=== PATIENT | male | born 1985 | race Asian ===

== ENCOUNTER 2021-09-11 12:25 | Emergency (ER) | payer MEDICARE, MEDICAID, SELFPAY ==
[2021-09-11 12:37] VITALS: BP 119/83; PULSE 96; RESP 18; TEMP 36.4; O2SAT 100
--- NOTE | 2021-09-11 13:14 | ED_ITS ---
HPI - General Adult General Time Seen by Provider: 13:00 Date Seen: 09/11/21 Chief complaint: Unspecified Complaint, Adult Stated complaint: Medication withdrawal Time Seen by Provider: 09/11/21 12:26 History of Present Illness HPI narrative: This 35-year-old male residing in a retirement here with his care provider Mily is coming in as they cannot get his clozapine filled from [facility]. The patient was scheduled to have a CBC done this past week and there was not reportedly a physician order and thus it got canceled. He has a psychiatrist that manages his clozapine. His care provider had him to multiple facilities trying to get the clozapine refilled for the weekend. I have reviewed with her after talking to her pharmacy that there is special dispensation license seen for this. We do not have it here. We have contacted [facility] and their pharmacist does have the dispensation license. Patient is going to have to be seen in the ED. patient is already been seen here and I have ordered a CBC. We will fax the results to Mel the pharmacist at [facility] managing the pharmacy there today. His care provider has no concerns with him, no concerns of any illness or infections. In review of some of his counts in the chart prior the most recent 1 was 05/14/2021 with a white blood count of 5000, absolute neutrophil count 2200. Related Data Home Medications Medication Instructions Recorded Confirmed carbamide peroxide 6.5 % ear drops drp OTIC (EAR) 09/11/21 (Ear Drops (carbamide peroxide)) cetirizine 10 mg tablet mg 09/11/21 clonidine HCl 0.1 mg tablet mg 09/11/21 clozapine 100 mg tablet mg 09/11/21 clozapine 50 mg tablet mg 09/11/21 divalproex 125 mg capsule,delayed mg PO 09/11/21 release sprinkle docusate sodium 100 mg capsule mg PO 09/11/21 ezetimibe 10 mg tablet mg 09/11/21 fenofibrate 160 mg tablet mg 09/11/21 fluoxetine 20 mg capsule mg 09/11/21 glucagon 1 mg solution for mg 09/11/21 injection (Glucagon Emergency Kit) insulin glargine 100 unit/mL (3 unit SUBCUT 09/11/21 mL) subcutaneous pen (Basaglar KwikPen U-100 Insulin) ipratropium bromide 42 mcg (0.06 INTRANASAL 09/11/21 %) nasal spray lancets 28 gauge (TRUEplus Lancets) 09/11/21 09/11/21 lorazepam 1 mg tablet mg 09/11/21 magnesium hydroxide 400 mg/5 mL 09/11/21 oral suspension (Milk of Magnesia) metformin 500 mg tablet,extended mg PO 09/11/21 release 24 hr multivitamin with folic acid 400 tab PO 09/11/21 mcg tablet (Daily-Nahomi (with folic acid)) pen needle, diabetic 31 gauge x 09/11/21 09/11/21 5/16 (UltiCare Pen Needle) polyethylene glycol 3350 17 g 09/11/21 gram/dose oral powder (Gavilax) triamcinolone acetonide 0.5 % TOPICAL 09/11/21 topical ointment valproic acid (as sodium salt) 250 mg 09/11/21 mg/5 mL oral solution Allergies Allergy/AdvReac Type Severity Reaction Status Date / Time No Known Drug Allergies Allergy Verified 09/11/21 12:41 Review of Systems Narrative: No concerns today, only issue is they are out of his clozapine. [facility] Medical History (Updated 09/11/21 @ 13:35 by Cordelia Kaur MD) Autism Diabetes mellitus OCD (obsessive compulsive disorder) Seizure disorder Social History Smoking Status: Never smoker Do you use any of these nicotine containing products: None Second hand tobacco smoke exposure: No How often do you have a drink containing alcohol: never How often do you have six or more drinks on one occasion: Never AUDIT-C Alcohol total score: 0 Non-prescribed substance use: denies use Exam Const: Vital Signs, click to edit/add: Vital Signs - 24 hr 09/11/21 12:37 Temperature 97.6 F Pulse Rate [Right Pulse Oximeter] 96 Respiratory Rate 18 Blood Pressure [Ri ght Upper Arm] 119/83 Pulse Oximetry 100 Documenting provider has reviewed patient's vital signs: yes Common normals: no apparent distress Other: States he wants to go home. Eye: Common normals: PERRL and EOMs intact bilaterally Pupil: PERRL Resp: Common normals: normal respiratory effort and clear to auscultation bilaterally Auscultation: clear to auscultation bilaterally Cardio: Common normals: regular rate, regular rhythm, S1 normal heart sound, S2 normal heart sound, no gallops, no clicks and no murmurs Rate: regular rate Rhythm: regular rhythm Heart sounds: S1 normal and S2 normal Course Course Hospital Course: Have ordered a CBC, have spoken with pharmacist at [facility], had reviewed the situation with our pharmacist 1st. We cannot dispense this medicine, I cannot prescribe this medicine. We will fax the CBC both to [facility] and [facility]. He will be advised they need to go to [place], with the pharmacist expecting to get medication dispensed to them pending the CBC result. Vital Signs Vital signs: Initial Vital Signs Temperature 97.6 F 09/11/21 12:37 Temperature Source Temporal Artery Scan 09/11/21 12:37 Pulse Rate 96 09/11/21 12:37 Respiratory Rate 18 09/11/21 12:37 Blood Pressure 119/83 09/11/21 12:37 Blood Pressure Mean 95 09/11/21 12:37 Blood Pressure Position Sitting 09/11/21 12:37 Pulse Oximetry 100 09/11/21 12:37 Oxygen Delivery Method 09/11/21 12:37 Vital Signs Temperature 97.6 F 09/11/21 12:37 Pulse Rate 96 09/11/21 12:37 Respiratory Rate 18 09/11/21 12:37 Blood Pressure 119/83 09/11/21 12:37 Pulse Oximetry 100 09/11/21 12:37 Temperature 97.6 F 09/11/21 12:37 Pulse Rate 96 09/11/21 12:37 Respiratory Rate 18 09/11/21 12:37 Blood Pressure 119/83 09/11/21 12:37 Pulse Oximetry 100 09/11/21 12:37 Medical Decision Making Lab Data Labs: Lab Results 09/11/21 Range/Units 13:15 WBC 10.48 (4.50-11.00) K/uL RBC 4.66 (4.30-5.90) m/uL Hgb 11.8 L (13.5-17.5) gm/dL Hct 35.3 L (37.0-53.0) % MCV 76 L (80-100) fL MCH 25 L (26-34) pg MCHC 33 (32-36) gm/dL RDW Coeff of Mikal 13.6 (11.5-15.5) % Plt Count 264 (140-440) K/uL Neut % (Auto) 69.8 (42.0-72.0) % Lymph % (Auto) 19.1 L (20-44) % Eddy % (Auto) 9.9 (0.0-11.0) % Eos % (Auto) 0.6 (0.0-7.0) % Baso % (Auto) 0.1 (0.0-3.0) % Neut # (Auto) 7.32 H (1.7-7.0) K/uL Lymph # (Auto) 2.00 (0.90-2.90) K/uL Eddy # (Auto) 1.00 H (0.00-0.90) K/UL Eos # (Auto) 0.06 (0.00-0.50) K/uL Baso # (Auto) 0.01 (0.00-0.30) K/uL Abs Immat Gran (auto) 0.05 (0.00-0.30) K/uL Discharge Plan Discharge Clinical Impression: Encounter for medication monitoring Patient Disposition: Xfer Acute Care Hospital Discharge Location: [facility] Condition: Stable Additional Instructions: Proceed to [place] emergency room where they are expecting you. Please take copy of your cell count results with you into the ED. We will also fax a result to the pharmacy but want to make sure that there is no issue with the receiving institution having these results.
[2021-09-11 13:21] LABS: Basophils Absolute Auto 0.01 K/uL (0.00-0.30); Basophils Percent Auto 0.1 % (0.0-3.0); Eosinophils Absolute Auto 0.06 K/uL (0.00-0.50); Eosinophils Percent Auto 0.6 % (0.0-7.0); Hematocrit 35.3 % (37.0-53.0); Hemoglobin* 11.8 gm/dL (13.5-17.5); Immature Granulocytes Abs Auto 0.05 K/uL (0.00-0.30); Lymphocytes Percent Auto 19.1 % (20-44); Mean Corpuscular HGB Conc 33 gm/dL (32-36); Mean Corpuscular Hemoglobin 25 pg (26-34); Mean Corpuscular Volume 76 fL (80-100); Monocytes Percent Auto 9.9 % (0.0-11.0); Neutrophils Absolute Auto 7.32 K/uL (1.7-7.0); Neutrophils Percent Auto 69.8 % (42.0-72.0); Platelet Count* 264 K/uL (140-440); RDW Coefficient of Variation % 13.6 % (11.5-15.5); Red Blood Count 4.66 m/uL (4.30-5.90); White Blood Count* 10.48 K/uL (4.50-11.00)
[2021-09-11 13:29] LABS: Slide Review Reflex No
--- NOTE | 2021-09-11 15:08 | ED.NURSE ---
Lab results faxed both to [facility] pharmacist and [facility].
== END 2021-09-11 13:48 | disposition short-term general hospital (02) ==
PROVIDERS: Emergency Provider Family Medicine; PCP Family Medicine
DX: Z51.81 Encounter for therapeutic drug level monitoring (principal)
CPT/HCPCS: 36415; 85025; 99282; 99283

== ENCOUNTER 2023-06-30 10:01 | Emergency (ER) | payer MEDICARE, MEDICAID, SELFPAY ==
[2023-06-30] VITALS (23 sets, daily range): BP systolic 80–118; BP diastolic 54–84; PULSE 91–100; RESP 16; TEMP 36; O2SAT 94–99; BMI 24.6
[2023-06-30 11:16] LABS: Basophils Percent Auto 0.1 % (0.0-3.0); Eosinophils Percent Auto 0.8 % (0.0-7.0); Hematocrit 39.9 % (37.0-53.0); Hemoglobin* 12.7 gm/dL (13.5-17.5); Immature Granulocytes Pct Auto 0.4 %; Lymphocytes Percent Auto 9.4 % (20-44); Mean Corpuscular HGB Conc 32 gm/dL (32-36); Mean Corpuscular Hemoglobin 25 pg (26-34); Mean Corpuscular Volume 78 fL (80-100); Monocytes Percent Auto 9.6 % (0.0-11.0); Neutrophils Percent Auto 79.7 % (42.0-72.0); Platelet Count* 292 K/uL (140-440); RDW Coefficient of Variation % 14.4 % (11.5-15.5); Red Blood Count 5.09 m/uL (4.30-5.90); White Blood Count* 12.87 K/uL (4.50-11.00)
[2023-06-30 11:18] LABS: Slide Review Reflex No
[2023-06-30 11:29] LABS: Chloride* 98 mmol/L (96-114); Sodium* 136 mmol/L (135-149)
[2023-06-30 11:30] LABS: Potassium* 4.7 mmol/L (3.6-5.1)
[2023-06-30 11:32] LABS: Creatinine* 1.1 mg/dL (0.5-1.5); Estimated Glomerular Filt Rate 89 ml/min
[2023-06-30 11:46] LABS: Anion Gap 14 mEq/L (7-15); Blood Urea Nitrogen* 14 mg/dL (5-24); Calcium* 10.8 mg/dL (8.4-10.6); Carbon Dioxide* 24 mmol/L (20-32); Glucose* 137 mg/dL (60-115)
--- NOTE | 2023-06-30 12:06 | XR_ITS ---
Patient: REMINGTON Facility:?[facility] Patient ID:?[id number] Site Patient ID:?[id number]. Site :?1985 Study:?XRay-Abdomen 1v-06/30/2023 12:38:51 PM Ordering Physician:CLIFFORD Final Report: INDICATION: Abdominal pain, swallowed a quarter and janeen recently. TECHNIQUE: Abdomen and pelvis 1 view(s) COMPARISON: None. FINDINGS/IMPRESSION: Multiple round metallic densities projecting over the right lower quadrant of the abdomen. These appear to measure approximately 2.0 cm in diameter. Nonspecific, nonobstructive bowel gas pattern. Thickened gastric wall, may reflect gastritis. No evidence of pneumoperitoneum, within limitations of supine positioning. Visualized lung bases are clear. No acute osseous abnormality. Dictated by Eugene Curry MD @ 06/30/2023 12:51:59 PM Signed by:?Eugene Curry MD @06/30/2023 12:51:59 PM (Electronic Signature)
--- NOTE | 2023-06-30 12:08 | ED.GENADULT ---
HPI - General Adult General Chief complaint: Abdominal Pain Stated complaint: low BP/ cant go to the BR Time Seen by Provider: 06/30/23 11:56 History of Present Illness HPI narrative: This 37-year-old male lives in a senior care and comes in because of generalized malaise. He was noted to have lower blood pressure on arrival but without any further intervention repeat blood pressure shows 99/74. He has not had any fevers. He did swallow some coins more than a month ago and there is report that the janeen has passed through. Labs are obtained and he does have a slightly elevated white blood cell count at 12.87. Other labs are reassuring. A plain x-ray of the abdomen does show what appears to be more than 1 foreign object in the right lower quadrant. A CT scan of the pelvis without contrast is then obtained and returns with findings of 1 point in the cecum and another is smaller object in the pelvis that is not likely a coin. There is no sign of obstruction or free air in the abdomen or other abnormality. The patient seems to be doing better and has systolic blood pressure at around 120. He is up to the bathroom and is interested in taking food. Related Data Home Medications Medication Instructions Recorded Confirmed carbamide peroxide 6.5 % ear drops drp otic (ear) 09/11/21 (Ear Drops (carbamide peroxide)) cetirizine 10 mg tablet mg 09/11/21 clonidine HCl 0.1 mg tablet 0.1 mg PO HS 09/11/21 06/30/23 clozapine 100 mg tablet 150 mg PO DAILY 09/11/21 06/30/23 clozapine 50 mg tablet 50 mg PO .am 09/11/21 06/30/23 divalproex 125 mg capsule,delayed 500 mg PO .am 09/11/21 06/30/23 release sprinkle docusate sodium 100 mg capsule 100 mg PO DAILY 09/11/21 06/30/23 ezetimibe 10 mg tablet 10 mg PO DAILY 09/11/21 06/30/23 fenofibrate 160 mg tablet 160 mg PO DAILY 09/11/21 06/30/23 fluoxetine 20 mg capsule mg 09/11/21 glucagon 1 mg solution for mg 09/11/21 injection (Glucagon Emergency Kit) insulin glargine 100 unit/mL (3 28 unit subcut HS 09/11/21 06/30/23 mL) subcutaneous pen (Basaglar KwikPen U-100 Insulin) ipratropium bromide 42 mcg (0.06 intranasal 09/11/21 %) nasal spray lancets 28 gauge (TRUEplus Lancets) 09/11/21 09/11/21 lorazepam 1 mg tablet 1 mg PO PRN 09/11/21 magnesium hydroxide 400 mg/5 mL 09/11/21 oral suspension (Milk of Magnesia) metformin 500 mg tablet,extended 1,500 mg PO .pm 09/11/21 06/30/23 release 24 hr multivitamin with folic acid 400 1 tab PO DAILY 09/11/21 06/30/23 mcg tablet (Daily-Nahomi (with folic acid)) pen needle, diabetic 31 gauge x 09/11/21 09/11/21 5/16 (UltiCare Pen Needle) polyethylene glycol 3350 17 17 g PO DAILY 09/11/21 06/30/23 gram/dose oral powder (Gavilax) triamcinolone acetonide 0.5 % topical 09/11/21 topical ointment valproic acid (as sodium salt) 250 375 mg PO Q12H 09/11/21 06/30/23 mg/5 mL oral solution Allergies Allergy/AdvReac Type Severity Reaction Status Date / Time No Known Drug Allergies Allergy Verified 06/30/23 10:17 Review of Systems Status of ROS: Reports: unobtainable due to mental status [facility] Medical History (Updated 06/30/23 @ 14:44 by Steve Qiu MD) OCD (obsessive compulsive disorder) ?F42.9 - Obsessive-compulsive disorder, unspecified (ICD-10) Autism ?F84.0 - Autistic disorder (ICD-10) Diabetes mellitus ?E11.9 - Type 2 diabetes mellitus without complications (ICD-10) Seizure disorder ?G40.909 - Epilepsy, unspecified, not intractable, without status epilepticus (ICD-10) Social History Smoking Status: Never smoker Do you use any of these nicotine containing products: None Second hand tobacco smoke exposure: No How often do you have a drink containing alcohol: never How often do you have six or more drinks on one occasion: Never AUDIT-C Alcohol total score: 0 Non-prescribed substance use: denies use Exam Narrative: Exam Narrative: Constitutional: Well-developed, well-nourished, no acute distress. HEENT: Normocephalic, atraumatic. Neck: Normal range of motion. Nontender. Supple. Heart: Regular. No murmurs. Normal rate. Intact distal pulses. Lungs: Clear to auscultation. No chest discomfort. No wheezes, rhonchi, or rales. Abdomen: Normal bowel sounds. Nontender. No rebound tenderness. I am able to palpate throughout his abdomen without any sign of discomfort. Genitalia: Deferred. Back: No midline tenderness. Normal range of motion. Extremities: Normal range of motion. No injury. Skin: Intact. No rash. Warm. No erythema or pallor. Nursing notes and vitals signs are reviewed. Const: Vital Signs, click to edit/add: Vital Signs - 24 hr 06/30/23 10:06 06/30/23 10:33 06/30/23 10:45 Temperature 96.8 F L Pulse Rate Pulse Rate [Pulse Oximeter] 98 Respiratory Rate 16 Blood Pressure 96/63 Blood Pressure [Ri ght Upper Arm] 80/54 L 96/63 Pulse Oximetry 97 Oxygen Delivery Me thod Room Air 06/30/23 11:01 06/30/23 11:22 06/30/23 11:31 Temperature Pulse Rate 91 93 Pulse Rate [Pulse Oximeter] Respiratory Rate Blood Pressure 94/70 99/74 Blood Pressure [Ri ght Upper Arm] Pulse Oximetry 94 96 Oxygen Delivery Me thod 06/30/23 11:32 06/30/23 11:45 06/30/23 12:00 Temperature Pulse Rate 91 91 92 Pulse Rate [Pulse Oximeter] Respiratory Rate Blood Pressure Blood Pressure [Ri ght Upper Arm] Pulse Oximetry 95 96 96 Oxygen Delivery Me thod 06/30/23 12:01 06/30/23 12:15 06/30/23 12:30 Temperature Pulse Rate 93 94 93 Pulse Rate [Pulse Oximeter] Respiratory Rate Blood Pressure 99/74 108/72 Blood Pressure [Ri ght Upper Arm] Pulse Oximetry 96 96 95 Oxygen Delivery Me thod 06/30/23 12:31 06/30/23 12:45 06/30/23 13:07 Temperature Pulse Rate 94 94 99 Pulse Rate [Pulse Oximeter] Respiratory Rate Blood Pressure Blood Pressure [Ri ght Upper Arm] Pulse Oximetry 95 96 98 Oxygen Delivery Me thod 06/30/23 13:15 06/30/23 13:30 06/30/23 13:34 Temperature Pulse Rate 93 94 94 Pulse Rate [Pulse Oximeter] Respiratory Rate Blood Pressure 109/79 Blood Pressure [Ri ght Upper Arm] Pulse Oximetry 97 99 97 Oxygen Delivery Me thod 06/30/23 13:45 Temperature Pulse Rate 93 Pulse Rate [Pulse Oximeter] Respiratory Rate Blood Pressure Blood Pressure [Ri ght Upper Arm] Pulse Oximetry 97 Oxygen Delivery Me thod Course Vital Signs Vital signs: Initial Vital Signs Temperature 96.8 F L 06/30/23 10:06 Temperature Source Temporal Artery Scan 06/30/23 10:06 Pulse Rate 98 06/30/23 10:06 Respiratory Rate 16 06/30/23 10:06 Blood Pressure 80/54 L 06/30/23 10:06 Blood Pressure Mean 62 L 06/30/23 10:06 Pulse Oximetry 97 06/30/23 10:06 Oxygen Delivery Method Room Air 06/30/23 10:06 Vital Signs Temperature 96.8 F L 06/30/23 10:06 Pulse Rate 98 06/30/23 10:06 Respiratory Rate 16 06/30/23 10:06 Blood Pressure 80/54 L 06/30/23 10:06 Pulse Oximetry 97 06/30/23 10:06 Oxygen Delivery Method Room Air 06/30/23 10:06 Temperature 96.8 F L 06/30/23 10:06 Pulse Rate 93 06/30/23 13:45 Respiratory Rate 16 06/30/23 10:06 Blood Pressure 109/79 06/30/23 13:34 Pulse Oximetry 97 06/30/23 13:45 Oxygen Delivery Method Room Air 06/30/23 10:06 Medical Decision Making Lab Data Labs: Lab Results 06/30/23 Range/Units 11:03 WBC 12.87 H (4.50-11.00) K/uL RBC 5.09 (4.30-5.90) m/uL Hgb 12.7 L (13.5-17.5) gm/dL Hct 39.9 (37.0-53.0) % MCV 78 L (80-100) fL MCH 25 L (26-34) pg MCHC 32 (32-36) gm/dL RDW Coeff of Mikal 14.4 (11.5-15.5) % Plt Count 292 (140-440) K/uL Neut % (Auto) 79.7 H (42.0-72.0) % Lymph % (Auto) 9.4 L (20-44) % [place] % (Auto) 9.6 (0.0-11.0) % Eos % (Auto) 0.8 (0.0-7.0) % Baso % (Auto) 0.1 (0.0-3.0) % Neut # (Auto) 10.30 H (1.7-7.0) K/uL Lymph # (Auto) 1.20 (0.90-2.90) K/uL [place] # (Auto) 1.20 H (0.00-0.90) K/UL Eos # (Auto) 0.10 (0.00-0.50) K/uL Baso # (Auto) 0.00 (0.00-0.30) K/uL Abs Immat Gran (auto) 0.10 (0.00-0.30) K/uL Imm/Tot Granulo (auto) 0.4 % Sodium 136 (135-149) mmol/L Potassium 4.7 (3.6-5.1) mmol/L Chloride 98 (96-114) mmol/L Carbon Dioxide 24 (20-32) mmol/L Anion Gap 14 (7-15) mEq/L BUN 14 (5-24) mg/dL Creatinine 1.1 (0.5-1.5) mg/dL Estimated Creat Clear 86.80 Estimated GFR 89 ml/min Glucose 137 H (60-115) mg/dL Calcium 10.8 H (8.4-10.6) mg/dL Imaging Data CT scan - pelvis: Radiologist's impression: 1. Diffuse fecal retention. 2. Metallic foreign body in the right lower quadrant probably within the cecum though exact localization is difficult due to streak artifact from dense metallic streak. This is likely 1 of the coins in question 3. A smaller metallic foreign body is noted lower in the cecum on the right measuring between 6 and 7 millimeters. This is too small to be a coin and is of uncertain etiology. 4. Pacemaker via the comment Discharge Plan Discharge Clinical Impression: Abdominal pain Patient Disposition: Home w/ Parent or Adult Condition: Stable Additional Instructions: Continue current plans. Recommend using a laxative to help push foreign object through the bowels. Follow up with MD or return if worsening. Prescriptions: No Action clonidine HCl 0.1 mg tablet 0.1 mg PO HS cetirizine 10 mg tablet clozapine 100 mg tablet 150 mg PO DAILY Patient Comments: takes at 1500 triamcinolone acetonide 0.5 % ointment TOPICAL magnesium hydroxide [Milk of Magnesia] 400 mg/5 mL suspension valproic acid (as sodium salt) 250 mg/5 mL solution 375 mg PO Q12H Patient Comments: HS dose 7.5 ml 2050/5ml afternoon dose 1500 mg 30 ml Ear Drops (carbamide peroxide) 6.5 % drops OTIC (EAR) docusate sodium 100 mg capsule 100 mg PO DAILY lorazepam 1 mg tablet 1 mg PO PRN Glucagon Emergency Kit (human) 1 mg recon soln polyethylene glycol 3350 [Gavilax] 17 gram/dose powder 17 g PO DAILY ipratropium bromide 42 mcg (0.06 %) spray,non-aerosol INTRANASAL fluoxetine 20 mg capsule metformin 500 mg tablet extended release 24 hr 1,500 mg PO .pm divalproex 125 mg capsule, delayed rel sprinkle 500 mg PO .am (DME) pen needle, diabetic [UltiCare Pen Needle] 31 gauge x 5/16 needle MISCELLANEOUS Patient Comments: FOR ADMINISTERING INSULIN AT HOME ezetimibe 10 mg tablet 10 mg PO DAILY Patient Comments: 1/2 tab (5 mg ) fenofibrate 160 mg tablet 160 mg PO DAILY clozapine 50 mg tablet 50 mg PO .am insulin glargine [Basaglar KwikPen U-100 Insulin] 100 unit/mL (3 mL) insulin pen 28 unit SUBCUT HS Patient Comments: INJECT 17 UNITS SUBCUTANEOUSLY AT BEDTIME multivitamin with folic acid [Daily-Nahomi (with folic acid)] 400 mcg tablet 1 tab PO DAILY (DME) lancets [TRUEplus Lancets] 28 gauge misc MISCELLANEOUS Patient Comments: TEST THREE TIMES A DAY Follow Up/Referrals: Israel Monteiro MD [Primary Care Provider] - Stand Alone Forms: [facility] [employer] [facility] Info Instructions
--- NOTE | 2023-06-30 12:36 | CT_ITS ---
Patient: REMINGTON Facility:?[facility] Patient ID:?[id number] Site Patient ID:?[id number]. Site :?1985 Study:?CT-Pelvis WITHOUT-06/30/2023 1:15:16 PM Ordering Physician:?DR. BARNETT Final Report: Indication: Swallowed a quarter and a janeen on May 20. No bowel movement. Checking for location of coins. Technique: CT examination of the pelvis was performed. Imaging was acquired from below the umbilicus to the symphysis pubis Please note that all CT scans at this facility use dose modulation, iterative reconstruction, and/or weight-based dosing when appropriate to reduce radiation dose to as low as reasonably achievable. Comparison: There are no prior studies for comparison Findings: There is diffuse fecal retention throughout the colon as visualized. This includes the rectosigmoid and portions of the visualized transverse colon, cecum and ascending colon. A rounded metallic foreign body is seen in the right lower quadrant. Exact localization is difficult by CT because of streak artifact but it is likely within the region of the cecum. This measures 18 millimeters in diameter and likely represents a coin. A smaller radiopaque structure is noted deeper in the right lower quadrant probably also in the cecum. This measures about 6.7 millimeters in diameter which is smaller than a janeen. The exact source of this metallic foreign body is uncertain. Because of streak artifact, plain film of the lower abdomen and pelvis may be more accurate in this regard Impression: 1. Diffuse fecal retention. 2. Metallic foreign body in the right lower quadrant probably within the cecum though exact localization is difficult due to streak artifact from dense metallic streak. This is likely 1 of the coins in question 3. A smaller metallic foreign body is noted lower in the cecum on the right measuring between 6 and 7 millimeters. This is too small to be a coin and is of uncertain etiology. 4. Pacemaker via the comment Please note that all CT scans at this facility use dose modulation, iterative reconstruction, and/or weight-based dosing when appropriate to reduce radiation dose to as low as reasonably achievable. Dictated by Josh Hilliard MD @ 06/30/2023 1:35:43 PM Signed by:?Josh Hilliard MD @06/30/2023 1:35:43 PM (Electronic Signature)
== END 2023-06-30 14:53 | disposition home or self-care (01) ==
PROVIDERS: Emergency Provider Emergency Medicine Emergency Medical Services; PCP Family Medicine
DX: R10.9 Unspecified abdominal pain (principal)
CPT/HCPCS: 36415; 72192; 74018; 80048; 85025; 99284; 99285

== ENCOUNTER 2023-07-01 09:13 | Emergency (ER) | payer MEDICARE, MEDICAID, SELFPAY ==
[2023-07-01 09:23] VITALS: BP 110/68; PULSE 92; RESP 18; TEMP 36.4; O2SAT 96
--- NOTE | 2023-07-01 09:57 | ED_ITS ---
HPI - Nausea/Vomiting/Diarrhea General Date Seen: 07/01/23 Chief complaint: Nausea/Vomiting Stated complaint: Vomiting-was here yesterday Time Seen by Provider: 07/01/23 09:25 Source: other (shelter caregiver) Mode of arrival: ambulatory History of Present Illness HPI Narrative: Patient is a 37-year-old [facility] presenting to the emergency department for vomiting. Patient was here yesterday and was seen in imaging done for concerned that he swallowed a magnet after he swallowed a few coins several days. He has also been having issues with constipation. Yesterday's CT and lab work was done showing to objects 1 likely a coin in his intestinal tract. The also showed a large amount of constipation. shelter was given instructions to use [id number] stool softeners. They state they are only able to give stool softeners every 3 days as standing orders and need more specific instructions if it is recommended to do more. He also had 2 episodes of vomiting but is currently asking for food. Related Data Home Medications Medication Instructions Recorded Confirmed carbamide peroxide 6.5 % ear drops drp otic (ear) 09/11/21 (Ear Drops (carbamide peroxide)) cetirizine 10 mg tablet mg 09/11/21 clonidine HCl 0.1 mg tablet 0.1 mg PO HS 09/11/21 06/30/23 clozapine 100 mg tablet 150 mg PO DAILY 09/11/21 06/30/23 clozapine 50 mg tablet 50 mg PO .am 09/11/21 06/30/23 divalproex 125 mg capsule,delayed 500 mg PO .am 09/11/21 06/30/23 release sprinkle docusate sodium 100 mg capsule 100 mg PO DAILY 09/11/21 06/30/23 ezetimibe 10 mg tablet 10 mg PO DAILY 09/11/21 06/30/23 fenofibrate 160 mg tablet 160 mg PO DAILY 09/11/21 06/30/23 fluoxetine 20 mg capsule mg 09/11/21 glucagon 1 mg solution for mg 09/11/21 injection (Glucagon Emergency Kit) insulin glargine 100 unit/mL (3 28 unit subcut HS 09/11/21 06/30/23 mL) subcutaneous pen (Basaglar KwikPen U-100 Insulin) ipratropium bromide 42 mcg (0.06 intranasal 09/11/21 %) nasal spray lancets 28 gauge (TRUEplus Lancets) 09/11/21 09/11/21 lorazepam 1 mg tablet 1 mg PO PRN 09/11/21 magnesium hydroxide 400 mg/5 mL 09/11/21 oral suspension (Milk of Magnesia) metformin 500 mg tablet,extended 1,500 mg PO .pm 09/11/21 06/30/23 release 24 hr multivitamin with folic acid 400 1 tab PO DAILY 09/11/21 06/30/23 mcg tablet (Daily-Nahomi (with folic acid)) pen needle, diabetic 31 gauge x 09/11/21 09/11/21 5/16 (UltiCare Pen Needle) polyethylene glycol 3350 17 17 g PO DAILY 09/11/21 06/30/23 gram/dose oral powder (Gavilax) triamcinolone acetonide 0.5 % topical 09/11/21 topical ointment valproic acid (as sodium salt) 250 375 mg PO Q12H 09/11/21 06/30/23 mg/5 mL oral solution Previous Rx's Medication Instructions Recorded ondansetron 4 mg disintegrating 4 mg PO Q6H #20 tabs 07/01/23 tablet Allergies Allergy/AdvReac Type Severity Reaction Status Date / Time No Known Drug Allergies Allergy Verified 06/30/23 10:17 Review of Systems Narrative: Pertinent systems reviewed and were negative unless stated in [facility]PI [facility] Medical History OCD (obsessive compulsive disorder) ?F42.9 - Obsessive-compulsive disorder, unspecified (ICD-10) Autism ?F84.0 - Autistic disorder (ICD-10) Diabetes mellitus ?E11.9 - Type 2 diabetes mellitus without complications (ICD-10) Seizure disorder ?G40.909 - Epilepsy, unspecified, not intractable, without status epilepticus (ICD-10) Social History Smoking Status: Never smoker Do you use any of these nicotine containing products: None Second hand tobacco smoke exposure: No How often do you have a drink containing alcohol: never How often do you have six or more drinks on one occasion: Never AUDIT-C Alcohol total score: 0 Non-prescribed substance use: denies use Exam Narrative: Exam Narrative: Const: Well-nourished, Well-developed, in no distress Eyes: PERRL, no conjunctival injection, and symmetrical lids HENT: Atraumatic external nose and ears. Moist mucous membranes. Neck: Symmetric, trachea midline, No thyromegaly. GI: Nontender/Nondistended, No rebound or guarding. MSK:Extremities w/o deformity, Normal Active ROM Skin: Warm, Dry. No rashes or lesions. Neuro: Normal Muscle tone, No focal neurological deficits. Psych: Awake, Alert, Appropriate mood and affect. Const: Vital Signs, click to edit/add: Vital Signs - 24 hr 07/01/23 09:23 Temperature 97.6 F Pulse Rate [Right Pulse Oximeter] 92 Respiratory Rate 18 Blood Pressure [Ri ght Upper Arm] 110/68 Pulse Oximetry 96 Oxygen Delivery Me thod Room Air Course Vital Signs Vital signs: Initial Vital Signs Temperature 97.6 F 07/01/23 09:23 Temperature Source Temporal Artery Scan 07/01/23 09:23 Pulse Rate 92 07/01/23 09:23 Respiratory Rate 18 07/01/23 09:23 Blood Pressure 110/68 07/01/23 09:23 Blood Pressure Mean 82 07/01/23 09:23 Blood Pressure Position Sitting 07/01/23 09:23 Pulse Oximetry 96 07/01/23 09:23 Oxygen Delivery Method Room Air 07/01/23 09:23 Vital Signs Temperature 97.6 F 07/01/23 09:23 Pulse Rate 92 07/01/23 09:23 Respiratory Rate 18 07/01/23 09:23 Blood Pressure 110/68 07/01/23 09:23 Pulse Oximetry 96 07/01/23 09:23 Oxygen Delivery Method Room Air 07/01/23 09:23 Temperature 97.6 F 07/01/23 09:23 Pulse Rate 92 07/01/23 09:23 Respiratory Rate 18 07/01/23 09:23 Blood Pressure 110/68 07/01/23 09:23 Pulse Oximetry 96 07/01/23 09:23 Oxygen Delivery Method Room Air 07/01/23 09:23 MDM - Nausea/Vomiting/Diarrhea MDM Narrative Medical decision making narrative: Patient is a 37-year-old male presenting with jail caregiver for nausea and more specific instructions for constipation. I reviewed his imaging. I do not believe repeat imaging is necessary. The likely coin was seen along with a small object like could be the magnet. [facility] coins are not magnetic so I am not worried about this causing an obstruction or other abnormalities. It does show he is quite constipated though and I will give very clear instructions. Was given a bowel cleanout regiment instructions along with instructions on how to use the [id number] medication for constipation. I also will prescribe Zofran as needed for nausea. Will be discharged at this time. Discharge Plan Discharge Clinical Impression: Constipation Patient Disposition: Home w/ Parent or Adult Condition: Stable Instructions: Constipation (DC) Additional Instructions: Use this bowel cleanout regimen ?2 - Bisacodyl tablets (Dulcolax? laxative NOT Dulcolax? stool softener) each tablet contains 5 mg of bisacodyl ?1 - 8.3 ounce bottle of Polyethylene Glycol (PEG) 3350 Powder (MiraLAX, Smoo thLAX, ClearLAX or generic equivalent) 64 oz. Gatorade? (No red colored flavors) Regular Gatorade?, Gatorade G2?, Powerade?, Powerade Zero?, Pedialyte or Propel?, Liquid IV, and other electrolyte beverages are acceptable. Red flavors are not allowed; all other colors (yellow, green, orange, purple, blue) are okay. It is also okay to buy two 2.12 oz packets of powdered Gatorade that can be mixed with water to a total volume of 64 oz of liquid. ?1 - 10 oz. bottle Magnesium Citrate (No red colored flavors) It is also okay for you to use a 0.5 ounce package of powdered magnesium citrate (17 grams) mixed with 10 ounces of water. ?Tomorrow begin Clear Liquid Diet (clear liquids include things you can see through). Examples of a clear liquid diet include: water, clear broth or bouillon (gluten free options available), Gatorade, Pedialyte or Powerade, carbonated and non-carbonated soft drinks (Sprite, 7-Up, Gingerale), strained fruit juices without pulp (apple, white grape, white cranberry), Jell-O, popsicles, and up to one cup of black coffee or tea (no milk or cream) each day. The following are not allowed on a clear liquid diet: red liquids, alcoholic beverages, dairy products, protein shakes, cream broths, juice with pulp, products containing oil and chewing tobacco. For additional details on following a clear liquid diet, please see [email or web address] ?Take 2 Bisacodyl (Dulcolax) tablets ?4-6 hour later Drink Miralax ? Gatorade preparation Mix 1 bottle of Miralax with 64 oz. of Gatorade in a large pitcher. Drink 1 - 8 oz. glass of the Miralax/Gatorade solution. Continue drinking 1 - 8 oz. glass every 15 minutes thereafter until the mixture is gone Continue to use docusate, senna or dulcolax, milk of magnesia or magnesium citrate twice a day daily until he is back to normal bowel movements. Use the Zofran as needed for nausea. His CT scan yesterday showed 1 coin and one smaller object that possibly could be a magnet. [place] Citizen coins are non magnetic and this should not cause problems. Prescriptions: New ondansetron 4 mg tablet,disintegrating 4 mg PO Q6H Qty: 20 0RF No Action clonidine HCl 0.1 mg tablet 0.1 mg PO HS cetirizine 10 mg tablet clozapine 100 mg tablet 150 mg PO DAILY Patient Comments: takes at 1500 triamcinolone acetonide 0.5 % ointment TOPICAL magnesium hydroxide [Milk of Magnesia] 400 mg/5 mL suspension valproic acid (as sodium salt) 250 mg/5 mL solution 375 mg PO Q12H Patient Comments: HS dose 7.5 ml 0/5ml afternoon dose 1500 mg 30 ml Ear Drops (carbamide peroxide) 6.5 % drops OTIC (EAR) docusate sodium 100 mg capsule 100 mg PO DAILY lorazepam 1 mg tablet 1 mg PO PRN Glucagon Emergency Kit (human) 1 mg recon soln polyethylene glycol 3350 [Gavilax] 17 gram/dose powder 17 g PO DAILY ipratropium bromide 42 mcg (0.06 %) spray,non-aerosol INTRANASAL fluoxetine 20 mg capsule metformin 500 mg tablet extended release 24 hr 1,500 mg PO .pm divalproex 125 mg capsule, delayed rel sprinkle 500 mg PO .am (DME) pen needle, diabetic [UltiCare Pen Needle] 31 gauge x 5/16 needle MISCELLANEOUS Patient Comments: FOR ADMINISTERING INSULIN AT HOME ezetimibe 10 mg tablet 10 mg PO DAILY Patient Comments: 1/2 tab (5 mg ) fenofibrate 160 mg tablet 160 mg PO DAILY clozapine 50 mg tablet 50 mg PO .am insulin glargine [Basaglar KwikPen U-100 Insulin] 100 unit/mL (3 mL) insulin pen 28 unit SUBCUT HS Patient Comments: INJECT 17 UNITS SUBCUTANEOUSLY AT BEDTIME multivitamin with folic acid [Daily-Nahomi (with folic acid)] 400 mcg tablet 1 tab PO DAILY (DME) lancets [TRUEplus Lancets] 28 gauge misc MISCELLANEOUS Patient Comments: TEST THREE TIMES A DAY Follow Up/Referrals: Israel Monteiro MD [Primary Care Provider] - Stand Alone [facility] Info Instructions
== END 2023-07-01 10:15 | disposition home or self-care (01) ==
PROVIDERS: Emergency Provider Student in an Organized Health Care Education/Training Program; PCP Family Medicine
DX: K59.00 Constipation, unspecified (principal)
CPT/HCPCS: 99282; 99283

== ENCOUNTER 2024-05-16 10:22 | Emergency (ER) | payer MEDICARE, MEDICAID, SELFPAY ==
--- OUTSIDE RECORDS SUMMARY | 2024-05-16 10:25 | XMS_ITS | Clinical Summary ---
Author Organization [employer] [facility] Address [address] [place] [address] Care Team Providers Care Certified Pest Control Technician Name Role Phone Conner Sweeney MD Unavailable VoIsrael chaudhary MD Primary Care Provider + Allergies No known active allergies Medications PROZAC 20 MG CAPIndications:Obses sive-compulsive disorders take 1 capsule (20mg) by oral route once daily in the morning 0 007 Active PREVIDENT 5000 SENSITIVE 1.1 %-5 % DENTAL PASTEIndications:Typ e I (juvenile type) diabetes mellitus without mention of complication, not stated as uncontrolled use as directed 0 007 Active FISH OIL 1,000 MG CAP 0 007 Active ATTENDS PULL-ON BRIEFS MEDIUM USE DIRECTED 150 12 008 Active MULTIVITAMIN TAB take 1 tablet by oral route once daily with food 009 Active medication order composer Disposable swabs PRN 0 019 Active ezetimibe (ZETIA) 10 mg tabletIndications:Pu re hyperglyceridemia TAKE 1/2 TABLET (5MG) BY MOUTH ONCE DAILY. *1 TOTAL FILL* 90 tablet 020 Active triamcinolone-dimeth icone 0.1-5 % ktoc Apply to affected areas as needed, 0.5% ointment 0 020 Active medication order composer Listerine mouthwash to be used PRN 0 020 Active fenofibrate 160 mg tabletIndications:Pu re hyperglyceridemia Take 1 tablet by mouth once daily with a meal. 30 tablet 11 021 Active Diaper,Brief, Adult,Disposable (Disposable Brief)Indications:Ac tive autistic disorder Size MediumFor home use.Pull ups for incontinence 120 Each 11 Active triamcinolone (ARISTOCORT) 0.5 % ointment Active sodium fluoride dental 1.1 % gel Apply to teeth. Active chlorhexidine (PERIDEX) 0.12 % solution Active glucose 4 gram chewable tabletIndications:Ty pe 2 diabetes mellitus without complication, with long-term current use of insulin (HC) Chew 1 Tablet (4 g) by mouth each time if needed for Blood Gluc < 60 mg/dL. 12 Tablet Active cloNIDine HCL (CATAPRES) 0.1 mg tablet Take 1/2 tablet by mouth bid daily, in the morning and afternoon 0 Active durable medical equipment (DME)Indications:Typ e 2 diabetes mellitus without complication, with long-term current use of insulin (HC),Hammer toes of both feet Diabetic shoes. Use for diabetes with hammer toes 2 Each 022 Active cloZAPine (CLOZARIL) 100 mg tabletIndications:Me dication refill,Simple schizophrenia, subchronic condition (HC) Take 1 tablet by mouth at 3-4 pm and 2 tablets by mouth in the evening. 3 tablets daily. Take with 50 mg dose. 9 Tablet Active cloZAPine (CLOZARIL) 50 mg tabletIndications:Di sturbance of conduct Take 1 tablet by mouth, 1 in the morning, 1 tablet at 3-4 pm and 1 tablet in the evening. 3 tablets daily. (takes with 100 mg tablets) 9 Tablet Active medication order composerIndications: Urinary incontinence, unspecified type FOR HOME USE 2 LARGE 2 MED 400 Each 3 022 Active metFORMIN (GLUCOPHAGE XR) 500 mg Extended-Release tabletIndications:Ty pe 2 diabetes mellitus without complication, with long-term current use of insulin (HC) Take 3 Tablets (1,500 mg) by mouth once daily with evening meal. 93 Tablet 3 022 Active Incontinence Pad, Liner, Disp (Pant Liners, Large) padsIndications:Acti ve autistic disorder Use inside underpants and change as needed for incontinence. 144 Each 3 023 Active valproic acid (DEPAKENE) 250 mg/5 mL oral solutionIndications: Seizure disorder (HC) TAKE 30ML (1500MG) BY MOUTH EVERY AFTERNOON;TAKE 7.5ML (375MG) BY MOUTH EVERY EVENING 9450 mL 3 023 Active divalproex sprinkles (DEPAKOTE SPRINKLES) 125 mg capsuleIndications:S eizure disorder (HC) TAKE 4 CAPSULES (500MG) BY MOUTH EVERY MORNING;TAKE 7 CAPSULES (875MG) BY MOUTH EVERY AFTERNOON AT ABOUT 3PM 330 Capsule 11 023 Active disposable glovesIndications:Ty pe 2 diabetes mellitus without complication, with long-term current use of insulin (HC) For home use 2 Large 2 Med 400 Each 3 023 Active alcohol swabsIndications:Typ e 2 diabetes mellitus without complication, with long-term current use of insulin (HC) USE 5-6 TIMES DAILY WITH GLUCOSE TESTS AND INSULIN ADMINISTRATION 500 Each 023 Active blood glucose control, normal (True Metrix Level 2) solnIndications:Type 2 diabetes mellitus without complication, with long-term current use of insulin (HC) USE DIRECTED 3 Each 3 023 [address], Disposable, 31 gauge x 3/16Indications:Typ e 1 diabetes mellitus without complication (HC) For administering insulin at home. 100 Each 024 Active pen needle, diabetic (UltiCare Pen Needle) 31 gauge x 5/16Indications:Typ e 2 diabetes mellitus without complication, with long-term current use of insulin (HC) For administering insulin at home. 300 Each 3 024 Active Lancing Device miscIndications:Type 2 diabetes mellitus without complication, with long-term current use of insulin (HC) As directed. 300 Each 024 Active TRUEplus Lancets 28 gauge miscIndications:Type 2 diabetes mellitus without complication, with long-term current use of insulin (HC) As directed three times daily. 300 Each 024 Active blood-glucose meterIndications:Typ e 2 diabetes mellitus without complication, with long-term current use of insulin (HC) Dispense meter, test strips, lancets covered by pt ins. E10.65 IDDM type I, uncontrolled - Test 3 times/day. 1 Each 024 Active blood sugar diagnostic (True Metrix Glucose Test Strip) stripIndications:Typ e 2 diabetes mellitus without complication, with long-term current use of insulin (HC) As directed three times daily. Dispense item covered by pt ins. E11.9 NIDDM type II - Test 3 times/day, Reason: diabetes 300 Each 3 024 Active polyethylene glycoL (Gavilax) 17 gram/scoop powderIndications:Ch ronic constipation MIX 17GM (MEASURE WITH MARKINGS INSIDE CAP) IN LIQUID AND DRINK BY MOUTH TWICE DAILY 1700 g 3 024 Active glucagon (Glucagon Emergency Kit, human,) 1 mg injectionIndications :Type 2 diabetes mellitus without complication, with long-term current use of insulin (HC) INJECT 1MG DIRECTED ONE TIME NEEDED FOR UP TO 1 DOSE. 2 Each 024 Active methylcellulose, with sugar, (Fiber Therapy, m-cell/sugar,) 2 gram/19 gram powdIndications:Cons tipation, acute MIX 1 TABLESPOON IN 8OZ WATER THEN TAKE BY MOUTH TWICE DAILY 1362 g 2 024 Active insulin glargine, U-100, (Basaglar KwikPen U-100 Insulin) 100 unit/mL (3 mL) penIndications:Type 2 diabetes mellitus without complication, with long-term current use of insulin (HC) Inject 28 units subcutaneous before bedtime. 30 mL 024 Active bisacodyL (DULCOLAX) 5 mg delayed release tabletIndications:Ch ronic constipation Give on evening of 2nd day without bowel movement. Use instead of MOM. 30 Tablet 11 025 Active LORazepam 1 mg tabletIndications:An xiety Take one tablet by mouth 1 hour BEFORE DENTAL APPOINTMENT Dental Procedure Anxiety 1 Tablet 4 025 Active LORazepam 1 mg tabletIndications:An xiety TAKE 1 TABLET BY MOUTH 30 MINUTES BEFORE DENTAL APPOINTMENT *6 TOTAL FILLS* *ORDER WHEN LOW* (DX: ANXIETY) 1 Tablet 5 025 2024 Disconti nued(Reo rder (E-cance l not sent)) Active Problems Problem Noted Date Diagnosed Date Type 2 diabetes mellitus wit h other specified complication, with long-term current use of insulin 05/25/2022 Simple schizophrenia, subchronic condition 11/06 Hearing loss 10/30/2017 Urinary incontinence 12/08/2016 Type 2 diabetes mellitus wit hout complication, with long-term current use of insulin 10/29/2015 Controlled type 2 diabetes mellitus without comp lication 10/22/2015 Seizure disorder 01/01/2013 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 convulsive w/o intractability Other and unspecified hyperlipidemia 04/27/2007 Autistic disorder 04/27/2006 Attention deficit disorder with hyperactivity Obsessive-compulsive disorders 04/27/2006 Unspecified disturbance of conduct 04/27/2006 Unspecified intellectual disabilities 04/27/2006 Resolved Problems Problem Noted Date Diagnosed Date Resolved Date Type 1 diabetes mellitus without complication 09/01/19 16 10/22/2015 Unspecified intellectual disabilities 04/27/2006 08/26/2021 Type I (juvenile type) diabe jeramy mellitus without mention of complication, not stated as uncontrolled 04/27/2006 08/20/2012 Encounters Date Type Department Care Team Description 05/09/2024 Telephone [facility] [address] [place] [address] Israel Monteiro MD Medication Management (medication management ) 04/30/2024 Telephone [facility] [address] [place] [address] Israel Monteiro MD Form 04/30/2024 Telephone [facility] [address] [place] [address] Israel Monteiro MD Questions (Orders and Materials ) 04/30/2024 Telephone [facility] [address] [place] [address] Israel Monteiro MD Form (Standing order for diabetic supplies and chart notes) 04/23/2024 Telephone [facility] [address] [place] [address] Israel Monteiro MD 04/16/2024 Telephone [facility] [address] [place] [address] Israel Monteiro MD Medication Management 04/12/2024 Travel 04/11/[address] [address] Israel Monteiro MD Refill Request (Lorazepam) 04/09/2024 10:50 AM CALL CENTER NURSE Office Visit [address] [address] Israel Monteiro MD Diabetes 04/09/2024 Travel 03/22/[address] [address] Israel Monteiro MD Lab 03/14/[address] [address] Israel Monteiro MD Form (Medication) 02/23/[address] [address] Israel Monteiro MD Refill Request (Basaglar Kwikpen) 02/22/[address] [address] Israel Monteiro MD Form 02/20/[address] [address] Israel Monteiro MD Form from Last 3 Months Immunizations Immunization Administration Dates Next Due AMB Influenza, IIV3 (Age >=3 years)(Flu Clinic Only) 11/19/2012,12/20/2011,01/29/2010,2008,01/02/2008 AMB Influenza, IIV4 PF (=>6 mos Flulaval,Fluzone Fluarix)(Flu Clinic Only) 12/16/2019,2013 COVID-19 VACCINE SPIKEVAX (M ODERNA 50MCG/0.5ML) 12YO+ PFS 12/29/2022 COVID-19 vaccine (Moderna 100mcg/0.5mL) PF, MDV 05/01/2020,04/03/2020 COVID-19 vaccine (XO1Bio NTech 30mcg/0.3mL) 12YO+ DEEPA-SUCROSE PF, MDV 10/28/2021 DTP 06/19/1992, 9,01/11/1988,1987,06/05/1987 HIB PRP-OMP (PedvaxHIB) 12/09/1991 Hepatitis B (Adult) 04/03/2017,11/03/2016,2016 INFLUENZA, IIV3 PF (AGE >= 6 MO) 11/07/2023 Influenza, IIV3 (Age >=3 years) 12/14/2010,01/19 Influenza, IIV4 01/06/2023,,11/26/2018,2017,11/29/2016,12/01/2015,12/02/2014 Influenza,CCIIV4 PRESERV FREE 12/29/2021 MMR 12/01/1998,02/23/1988 Oral Polio Vaccine 06/19/1992, 9,08/15/1987,1987 Pneumococcal Poly,23-Valent (Pneumovax) 03/08/2017 Pneumococcal conj 13-Valent (Prevnar 13) 11/04/2020 Td (Age >=7 Years) 12/01/1998 Tdap 11/16/2023,08/15/2012,07/29/2008 Tuberculin (PPD) 01/01/2013 Family History Medical History Relation Name Comments Unknown Other Relation Name Status Comments Brother 1 Alive Brother 2 Alive Brother 3 Alive Father Alive Mother Alive Other Sister Alive Social History Tobacco Use Types Packs/Day Years Used Date Smoking Tobacco: Never Smokeless Tobacco: Never Tobacco Cessation:Counseling Given: Yes Alcohol Use Standard Drinks/Week Comments Never 0 (1 standard drink = 0.6 oz pur e alcohol) PHQ-2 Answer Date Recorded PHQ-2 Score 0 05/06/2018 Social Connections Answer Date Recorded Do you often feel lonely or isolated from those around you? 0 07/04/2023 Financial Resource Strain Answer Date R ecorded Difficulty of Paying Living Expenses 3 07/04/2023 Difficulty of Paying Living Expenses Not on file 07/04/2023 Food Insecurity Answer Date Recorded Do you worry your food will run out before you are able to buy more? 1 07/04/2023 Transportation Needs Answer Date Record ed Does lack of transportation keep you from medica l appointments? 1 07/04/2023 Does lack of transportation keep you from work, meetings or getting things that you need? 1 07/04/2023 Housing Stability Answer Date Recorded What is your housing situation today? 1 07/04/2023 Utilities Answer Date Recorded Do you have trouble paying f or utilities (for example, heat, electricity, water, phone)? 1 07/04/2023 Sex and Gender Information Value Date Recorded Sex Assigned at Not on file Legal Sex Male 5:19 AM CALL CENTER NURSE Gender Identity Not on file Sexual Orientation Not on file Occupation Industry Job Start Date Job End Date disabled Not on file Not on file Not on file Obstetrics History Last Filed Vital Signs Vital Sign Reading Time Taken Comments Blood Pressure 105/71 04/09/2024 11:08 AM CALL CENTER NURSE Pulse 85 04/09/2024 11:08 AM CALL CENTER NURSE Temperature 36.4 C (97.5 F) 12/23/2021 11:21 AM CDT Respiratory Rate 18 12/11/2021 11:1 2 AM CDT Oxygen Saturation 100% 04/09/2024 11: 08 AM CALL CENTER NURSE Inhaled Oxygen Concentration - - Weight 72.5 kg (159 lb 14.4 oz) 025 11:08 AM CALL CENTER NURSE Height 168.7 cm (5' 6.4) 04/09/2024 11 :08 AM CALL CENTER NURSE Body Mass Index 25.5 04/09/2024 11:08 AM CALL CENTER NURSE Plan of Treatment Health Maintenance Due Date Last Done Comments HIV for age 15-65 2001 COVID-19 vaccine series ( season) 2023 12/29/2022, 10/28/2021, 05/01/2020, Additional history exists BMI (ht and wt on same day) for age 18+ 04/09/2025 04/09/2024, 11/07/2023, 08/22/2023, Additional history exists Lipids for age 35-44 04/09/2029 04/09/2024, 08/22/2023, 12/02/2022, Additional history exists Tetanus booster 11/15/2033 11/16/2023, 08/04, 07/29/2008, Additional history exists Pneumococcal series for age 6-49 (3 of 3 - PCV20 or PCV21) 2036 11/04/2020, 03/08/2017 Hepatitis B series for Diabetes Completed 04/03/2017, 11/03/2016, 10/04/2016 Hepatitis C screening for ag e 18-79 Completed 10/28/2021 Influenza Vaccine Completed 11/07/2023, , 12/29/2021, Additional history exists Tdap Completed 11/16/2023, 08/04, 07/29/2008 Procedures Procedure Name Priority Date/Time Associated Diagnosis Comments URINE ALBUMIN TO CREATININE RATIO, RANDOM Routine 04/09/2024 11:01 AM CALL CENTER NURSE Type 2 diabetes mellitus without complication, with long-term current use of insulin (HC) BASIC METABOLIC PANEL Routine 04/09/2024 10:50 AM CALL CENTER NURSE Type 2 diabetes mellitus without complication, with long-term current use of insulin (HC) LIPID PANEL W REFLEX MEASURED LDL Routine 04/09/2024 10:50 AM CALL CENTER NURSE Hyperlipidemia, unspecified hyperlipidemia type HEMOGLOBIN A1C MONITORING (POCT) Routine 04/09/2024 10:48 AM CALL CENTER NURSE Type 2 diabetes mellitus without complication, with long-term current use of insulin (HC) ANTI HCV Routine 10/28/2021 10:12 AM CDT Need for hepatitis C screening test from Last 3 Months or Most Recently Relevant to Health Maintenance Results * (ABNORMAL) URINE ALBUMIN TO CREATININE RATIO, RANDOM (04/09/2024 11:01 AM CALL CENTER NURSE) ALB RAND URINE 291.0 mg/L 04/09/2024 4:56 PM CALL CENTER NURSE [facility] CREATININE,URIN E 2.48 g/L 04/09/2024 4:56 PM CALL CENTER NURSE [facility] ALBUMIN TO CREATININE RATIO,RAND UR 117.3(H) <30.0 mg/g creat 04/09/2024 4:56 PM CALL CENTER NURSE [facility] Urine URINE SPECIMEN / Unknown Non-Blood / Unknown 04/09/2024 11:01 AM CALL CENTER NURSE 04/09/2024 11:01 AM CALL CENTER NURSE Narrative [facility] - 04/09/2024 4:56 PM CALL CENTER NURSE If Albumin to Creatinine Ratio is elevated, consider the following: Elevations seen with incipient nephropathy associated with diabetes mellitus or hypertension. Stress, exercise,hematuria, and urinary tract infection may also produce elevated results. If clinically indicated, confirm with 24 Hour Albumin to Creatinine Ratio. us Israel Monteiro MD URINE Final Re sult [facility] [address] [place] [address], * (ABNORMAL) LIPID PANEL W REFLEX MEASURED LDL (04/09/2024 10:50 AM CALL CENTER NURSE) CHOLESTEROL, TOTAL 137 <200 mg/dL [facility] HDL CHOLESTEROL 38(L) > OR = 40 mg/dL [facility] TRIGLYCERIDES 186(H) <150 mg/dL [facility] LDL-CHOLESTEROL 74 mg/dL (calc) [facility] Comment: Reference range: <100 Desirable range <100 mg/dL for primary prevention; <70 mg/dL for patients with CHD or diabetic patients with > or = 2 CHD risk factors. LDL-C is now calculated using the Abram-Gallito calculation, which is a validated novel method providing better accuracy than the Friedewald equation in the estimation of LDL-C. Abram SARMIENTO et al. ANTONELLA. 2013;310(19): 6001-7144 (http://education.AA Party.Yu Rong/faq/VMX580) CHOL/HDLC RATIO 3.6 <5.0 (calc) [facility] NON HDL CHOLESTEROL 99 <130 mg/dL (calc) [facility] Comment: For patients with diabetes plus 1 major ASCVD risk factor, treating to a non-HDL-C goal of <100 mg/dL (LDL-C of <70 mg/dL) is considered a therapeutic option. Blood BLOOD SPECIMEN / Unknown 04/09/2024 10:50 AM CALL CENTER NURSE 04/09/2024 10:50 AM CALL CENTER NURSE Israel Monteiro MD CHEMISTRY Final Re sult [employer] [facility] [address] [place] [address], [facility] [address] [place] [address] * (ABNORMAL) BASIC METABOLIC PANEL (04/09/2024 10:50 AM CALL CENTER NURSE) GLUCOSE 131(H) 65 - 99 mg/dL [facility] Comment: Fasting reference interval For someone without known diabetes, a glucose value >125 mg/dL indicates that they may have diabetes and this should be confirmed with a follow-up test. UREA NITROGEN (BUN) 15 7 - 25 mg/dL [facility] CREATININE 0.81 0.60 - 1.26 mg/dL [facility] EGFR 116 > OR = 60 mL/min/1. 73m2 [facility] BUN/CREATININE RATIO SEE NOTE: 6 - 22 (calc) [facility] Comment: Not Reported: BUN and Creatinine are within reference range. SODIUM 131(L) 135 - 146 mmol/L [facility] POTASSIUM 4.7 3.5 - 5.3 mmol/L [facility] CHLORIDE 97(L) 98 - 110 mmol/L [facility] CARBON DIOXIDE 22 20 - 32 mmol/L [facility] ELECTROLYTE BALANCE 12 7 - 17 mmol/L (calc) [facility] CALCIUM 10.6(H) 8.6 - 10.3 mg/dL [facility] Blood BLOOD SPECIMEN / Unknown 04/09/2024 10:50 AM CALL CENTER NURSE 04/09/2024 10:50 AM CALL CENTER NURSE Israel Monteiro MD CHEMISTRY Final Re sult Performing Organization Address City/[facility]/ZIP Co de Phone Number [employer] [facility] [address] [place] [address], [place] [phone] [facility] [address] [place] [address] * HEMOGLOBIN A1C MONITORING (POCT) (04/09/2024 10:48 AM CALL CENTER NURSE) [facility] POC HEMOGLOBIN A1C 5.8 <6.0 % OF TOTAL HGB [facility] Comment: Any point of care results exhibiting inconsistency with the patient's clinical status should be repeated using a different testing method. Blood BLOOD SPECIMEN / Unknown 04/09/2024 10:48 AM CALL CENTER NURSE 04/09/2024 10:48 AM CALL CENTER NURSE us Israel Monteiro MD CHEMISTRY Final Re sult Performing Organization Address [facility] Co de Phone Number [facility] [address] [place] [address], [facility] [address] [place] [address] * ANTI HCV (10/28/2021 10:12 AM CDT) [facility] HEPATITIS C ANTIBODY Non-React jacoby Non-React jacoby 10/28/2021 9:03 PM CDT [facility] Comment:Antibodies to HCV no t detected; does not exclude the possibility of exposure to HCV. Blood BLOOD SPECIMEN / Unknown Venipuncture / Unknown 10/28/2021 10:12 AM CDT 10/28/2021 10:15 AM CDT us Israel Monteiro MD SEND OUTS Final Re sult Performing Organization Address City/[facility]/ZIP Co de Phone Number [facility] [address] [place] [address], [place] from Last 3 Months or Most Recently Relevant to Health Maintenance Insurance MEDICAID MEDICARE PB ONLY MEDICARE PART B HB ONLY MEDICARE PART A HB ONLY MEDICARE PART A HB ONLY MEDICARE PART B HB ONLY MEDICAID Advance Directives * Full Code (Latest Code Status on File) Date Activated Date Inactivated Comments 09/30/2013 1:41 PM 09/30/2013 4:09 PM Care Teams Certified Pest Control Technician Relationship Specialty Start Date End Date Votel, Israel Curiel MD [address] [place] [address] PCP - General Family Practice 10/07/15 Conner Sweeney MD [address] , [address] [place] [address] Psychology 08/15/11
[2024-05-16 10:26] VITALS: BP 86/54; PULSE 78; RESP 18; TEMP 35.9; O2SAT 97; BMI 24.6
[2024-05-16 11:03] LABS: Glucose, Point-of-Care* 122 mg/dl (60-115)
[2024-05-16 11:04] VITALS: BP 96/62; PULSE 80; RESP 14; O2SAT 97
[2024-05-16 11:13] VITALS: BP 94/58; BP 96/62; BP 98/69; PULSE 80; PULSE 83
--- NOTE | 2024-05-16 11:24 | CRLHL7_ITS ---
For Patients: As a result of the Century Cures Act, medical imaging exams and procedure reports are released immediately into your electronic medical record. You may view this report before your referring provider. If you have questions, please contact your health care provider. INDICATION: Weakness, low blood pressure TECHNIQUE: Chest 2 views. COMPARISON: None. FINDINGS: Cardiovascular and mediastinum: Heart size is normal. Unremarkable mediastinum. Lungs and pleural spaces: Linear opacity in the left lower lobe may reflect atelectasis. No sign of infiltrate or mass. No sign of pleural effusion. No pneumothorax. Bones and soft tissues: Top-normal dilated loop of bowel in the left upper quadrant measuring up to 6.2 cm IMPRESSION: No acute cardiothoracic abnormality. Top-normal dilated loop of bowel in the left upper quadrant measuring up to 6.2 cm. Findings are indeterminate for ileus versus obstruction. Dictated by Maryjane Painter MD @ 05/16/2024 11:53:44 AM (Electronically Signed)
--- NOTE | 2024-05-16 11:49 | ED_ITS ---
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 Information was given via networker that is with him today. She states he went to work today but they sent home home from work because he seemed to be spacing out a lot. When he arrived back to the [facility]iary she checked his vitals and they were all normal other than he was hypotensive with the systolics in the 70s. She also states he seemed less active than normal. Due to this he was brought to the emergency department. In triage blood pressure was 86/54. When she was brought back to his room blood pressures have improved. The worker states she is not too concerned about his activity level is just mostly concerned about his blood pressure. He has been having a cough for the past month which they thought was related to allergies. They have not noticed any other concerns. He has not done them if he has any pain. Of note he was started on propanolol last month for hypertension. His blood pressures are usually in the 110s to 140s. Related Data Home Medications ?Medication ?Instructions ?Recorded ?Confirmed carbamide peroxide 6.5 % ear drops drp otic (ear) 09/11/21 05/09/24 (Ear Drops (carbamide peroxide)) cetirizine 10 mg tablet mg 09/11/21 05/09/24 clonidine HCl 0.1 mg tablet 0.1 mg PO HS 09/11/21 05/09/24 clozapine 100 mg tablet 150 mg PO DAILY 09/11/21 05/09/24 clozapine 50 mg tablet 50 mg PO .am 09/11/21 05/09/24 divalproex 125 mg capsule,delayed 500 mg PO .am 09/11/21 05/16/24 release sprinkle docusate sodium 100 mg capsule 100 mg PO DAILY 09/11/21 05/16/24 ezetimibe 10 mg tablet 10 mg PO DAILY 09/11/21 05/16/24 fenofibrate 160 mg tablet 160 mg PO DAILY 09/11/21 05/16/24 fluoxetine 20 mg capsule 20 mg DAILY 09/11/21 05/09/24 glucagon 1 mg solution for mg 09/11/21 05/09/24 injection (Glucagon Emergency Kit) insulin glargine 100 unit/mL (3 28 unit subcut HS 09/11/21 05/16/24 mL) subcutaneous pen (Basaglar KwikPen U-100 Insulin) ipratropium bromide 42 mcg (0.06 intranasal 09/11/21 05/09/24 %) nasal spray lancets 28 gauge (TRUEplus Lancets) 09/11/21 05/09/24 lorazepam 1 mg tablet 1 mg PO PRN 09/11/21 05/09/24 metformin 500 mg tablet,extended 1,500 mg PO .pm 09/11/21 05/16/24 release 24 hr multivitamin with folic acid 400 1 tab PO DAILY 09/11/21 05/16/24 mcg tablet (Daily-Nahomi (with folic acid)) pen needle, diabetic 31 gauge x 09/11/21 05/09/24 5/16 (UltiCare Pen Needle) polyethylene glycol 3350 17 17 g PO DAILY 09/11/21 05/16/24 gram/dose oral powder (Gavilax) triamcinolone acetonide 0.5 % topical 09/11/21 05/09/24 topical ointment valproic acid (as sodium salt) 250 375 mg PO Q12H 09/11/21 05/16/24 mg/5 mL oral solution omega 3-zqo-drw-fish oil 1,000 mg 1 cap PO QDAY 05/09/24 05/16/24 (120 mg-180 mg) capsule (Fish Oil) propranolol 10 mg tablet 10 mg PO BID 05/09/24 05/16/24 Basaglar KwikPen U-100 Insulin 05/16/24 clozapine 150 mg disintegrating 150 mg PO DAILY 05/16/24 05/16/24 tablet clozapine 200 mg tablet 250 mg PO DAILY 05/16/24 05/16/24 clozapine 50 mg tablet 50 mg PO DAILY 05/16/24 05/16/24 Previous Rx's ?Medication ?Instructions ?Recorded ondansetron 4 mg disintegrating 4 mg PO Q6H #20 tabs 07/01/23 tablet bisacodyl 5 mg tablet,delayed 5 mg PO ONCE 0 days #2 tabs 05/16/24 release (Gentle Laxative (bisacodyl)) magnesium citrate 296 ml PO ONCE #296 mL 05/16/24 polyethylene glycol 3350 17 See Rx Instructions .Route 05/16/24 gram/dose oral powder .COMPLEX #238 grams simethicone 125 mg capsule 250 mg (2 x 125 mg) PO ONCE #2 caps 05/16/24 Allergies Allergy/AdvReac Type Severity Reaction Status Date / Time No Known Drug Allergies Allergy Verified 05/09/24 10:36 Review of Systems Status of ROS: Reports: unobtainable due to medical condition [facility] Medical History OCD (obsessive compulsive disorder) ?F42.9 - Obsessive-compulsive disorder, unspecified (ICD-10) Autism ?F84.0 - Autistic disorder (ICD-10) Diabetes mellitus ?E11.9 - Type 2 diabetes mellitus without complications (ICD-10) Seizure disorder ?G40.909 - Epilepsy, unspecified, not intractable, without status epilepticus (ICD-10) Social History Smoking Status: Never smoker Do you use any of these nicotine containing products: None Second hand tobacco smoke exposure: No How often do you have a drink containing alcohol: never How often do you have six or more drinks on one occasion: Never AUDIT-C Alcohol total score: 0 Non-prescribed substance use: denies use Exam Narrative: Exam Narrative: Const: Well-nourished, Well-developed, in no distress Eyes: PERRL, no conjunctival injection, and symmetrical lids HENT: Atraumatic external nose and ears. Moist mucous membranes. Neck: Symmetric, trachea midline, No thyromegaly. CVS: RRR, No murmurs or gallops. Peripheral pulses 2+ and equal in all extremities RESP: Unlabored respiratory effort. Clear to auscultation bilaterally. GI: Nontender/Nondistended, No rebound or guarding. MSK:Extremities w/o deformity, Normal Active ROM Skin: Warm, Dry. No rashes or lesions. Neuro: Normal Muscle tone, No focal neurological deficits. Psych: Awake, Alert, Appropriate mood and affect. Const: Vital Signs, click to edit/add: Vital Signs - 24 hr 05/16/24 10:26 05/16/24 11:04 05/16/24 11:13 Temperature 96.7 F L Pulse Rate Pulse Rate [Pulse Oximeter] 78 80 Pulse Rate [orthos tatic lying] 80 Pulse Rate [orthos tatic sitting] 83 Pulse Rate [orthos tatic standing] 83 Respiratory Rate 18 14 Blood Pressure Blood Pressure [Ri ght Upper Arm] 86/54 L 96/62 Blood Pressure [or thostatic lying] 96/62 Blood Pressure [or thostatic sitting] 98/69 Blood Pressure [or thostatic standing ] 94/58 L Pulse Oximetry 97 97 Oxygen Delivery Me thod Room Air Room Air 05/16/24 12:00 05/16/24 12:19 Temperature Pulse Rate 80 80 Pulse Rate [Pulse Oximeter] Pulse Rate [orthos tatic lying] Pulse Rate [orthos tatic sitting] Pulse Rate [orthos tatic standing] Respiratory Rate 15 12 Blood Pressure 112/76 Blood Pressure [Ri ght Upper Arm] Blood Pressure [or thostatic lying] Blood Pressure [or thostatic sitting] Blood Pressure [or thostatic standing ] Pulse Oximetry 99 99 Oxygen Delivery Me thod Course Vital Signs Vital signs: Initial Vital Signs Temperature 96.7 F L 05/16/24 10:26 Temperature Source Temporal Artery Scan 05/16/24 10:26 Pulse Rate 78 05/16/24 10:26 Respiratory Rate 18 05/16/24 10:26 Blood Pressure 86/54 L 05/16/24 10:26 Blood Pressure Mean 64 L 05/16/24 10:26 Pulse Oximetry 97 05/16/24 10:26 Oxygen Delivery Method Room Air 05/16/24 10:26 Vital Signs Temperature 96.7 F L 05/16/24 10:26 Pulse Rate 78 05/16/24 10:26 Respiratory Rate 18 05/16/24 10:26 Blood Pressure 86/54 L 05/16/24 10:26 Pulse Oximetry 97 05/16/24 10:26 Oxygen Delivery Method Room Air 05/16/24 10:26 Temperature 96.7 F L 05/16/24 10:26 Pulse Rate 80 05/16/24 12:19 Respiratory Rate 12 05/16/24 12:19 Blood Pressure 112/76 05/16/24 12:19 Pulse Oximetry 99 05/16/24 12:19 Oxygen Delivery Method Room Air 05/16/24 11:04 Medical Decision Making MDM Narrative Medical decision making narrative: Patient is a 38-year-old male presenting for decreased activity and hypotension. Once the brought back to the room his pressures were in the 90s over 50s. Orthostatics were done with no changes. His heart range within normal limits. He is oxygenating well on room air. Respiratory status looks well. Overall he appears well but considering he is to focus the concerning any symptoms started to say what other symptoms he is having. Will do a chest x-ray to look for signs of pneumonia. Will do basic lab work to look for any other abnormalities along with a COVID/flu/RSV swab. Lab work shows no concerning abnormalities. Is white blood cell count and hemoglobin is consistent with previous time seen a ED. EKG and troponin showed no concerning findings. There is some elevation seen in V2 solely but does not meet any known pattern for bruit got a syndrome. Is not having any chest pain as far as I can tell. His blood pressure has improved significantly and his most recent blood pressure is 112/76. On my review vital signs are stable throughout time in in the emergency department. Oximetry stayed in the mid to high 90s. monitoring specialist showed no concerning arrhythmias. Chest x-ray showed no abnormalities other than the possible bowel obstruction seen. Due to this I will order a CT scan. The networker does state that he ate corners last year and was told they passed enough along that they are not of concern. The CT shows severe constipation but no signs of an impaction or other concerning abnormalities. The likely coins were seen in the cecum. No signs of a bowel obstruction. He will be discharged with bowel cleanout regimen. Lab Data Labs: Lab Results 05/16/24 05/16/24 05/16/24 Range/Units 11:03 11:20 12:01 WBC (4.50-11.00) K/uL RBC (4.30-5.90) m/uL Hgb (13.5-17.5) gm/dL Hct (37.0-53.0) % MCV (80-100) fL MCH (26-34) pg MCHC (32-36) gm/dL RDW Coeff of Mikal (11.5-15.5) % Plt Count (140-440) K/uL Neut % (Auto) (42.0-72.0) % Lymph % (Auto) (20-44) % [place] % (Auto) (0.0-11.0) % Eos % (Auto) (0.0-7.0) % Baso % (Auto) (0.0-3.0) % Neut # (Auto) (1.7-7.0) K/uL Lymph # (Auto) (0.90-2.90) K/uL [place] # (Auto) (0.00-0.90) K/UL Eos # (Auto) (0.00-0.50) K/uL Baso # (Auto) (0.00-0.30) K/uL Abs Immat Gran (auto) (0.00-0.30) K/uL Imm/Tot Granulo (auto) % Sodium (135-149) mmol/L Potassium (3.6-5.1) mmol/L Chloride (96-114) mmol/L Carbon Dioxide (20-32) mmol/L Anion Gap (7-15) mEq/L BUN (5-24) mg/dL Creatinine (0.5-1.5) mg/dL Estimated Creat Clear Estimated GFR ml/min Glucose (60-115) mg/dL Calcium (8.4-10.6) mg/dL Magnesium (1.5-2.6) mg/dL Troponin I (0.01-0.04) ng/mL SARS-CoV-2 (PCR) Negative SARS-CoV-2 (Negative) Influenza Type A (PCR) Negative PCR FLU A (Negative) Influenza Type B (PCR) Negative PCR FLU B (Negative) RSV (PCR) Negative PCR RSV (Negative) POC Glucose 122 H (60-115) mg/dl POC Creatinine 1.0 (0.6-1.3) mg/dl 05/16/24 Range/Units 12:10 WBC 13.28 H (4.50-11.00) K/uL RBC 4.69 (4.30-5.90) m/uL Hgb 11.9 L (13.5-17.5) gm/dL Hct 36.5 L (37.0-53.0) % MCV 78 L (80-100) fL MCH 25 L (26-34) pg MCHC 33 (32-36) gm/dL RDW Coeff of Mikal 14.8 (11.5-15.5) % Plt Count 268 (140-440) K/uL Neut % (Auto) 76.6 H (42.0-72.0) % Lymph % (Auto) 13.6 L (20-44) % [place] % (Auto) 7.8 (0.0-11.0) % Eos % (Auto) 0.8 (0.0-7.0) % Baso % (Auto) 0.1 (0.0-3.0) % Neut # (Auto) 10.20 H (1.7-7.0) K/uL Lymph # (Auto) 1.80 (0.90-2.90) K/uL [place] # (Auto) 1.00 H (0.00-0.90) K/UL Eos # (Auto) 0.10 (0.00-0.50) K/uL Baso # (Auto) 0.00 (0.00-0.30) K/uL Abs Immat Gran (auto) 0.10 (0.00-0.30) K/uL Imm/Tot Granulo (auto) 1.1 % Sodium 131 L (135-149) mmol/L Potassium 4.4 (3.6-5.1) mmol/L Chloride 97 (96-114) mmol/L Carbon Dioxide 23 (20-32) mmol/L Anion Gap 11 (7-15) mEq/L BUN 15 (5-24) mg/dL Creatinine 0.9 (0.5-1.5) mg/dL Estimated Creat Clear 105.07 Estimated GFR 113 ml/min Glucose 108 (60-115) mg/dL Calcium 10.0 (8.4-10.6) mg/dL Magnesium 2.1 (1.5-2.6) mg/dL Troponin I < 0.01 L (0.01-0.04) ng/mL SARS-CoV-2 (PCR) (Negative) Influenza Type A (PCR) (Negative) Influenza Type B (PCR) (Negative) RSV (PCR) (Negative) POC Glucose (60-115) mg/dl POC Creatinine (0.6-1.3) mg/dl Imaging Data CT scan abdomen pelvis: Attestation: I have reviewed the pertinent imaging results. Radiologist's impression: 1. Demonstration of radiopaque metallic objects within the cecum which may represent ingested foreign bodies. Correlate with history of clinical symptoms. 2. Markedly redundant sigmoid colon with severe stool seen throughout the colon commensurate with constipation changes. Nonspecific fluid is seen within the small bowel without definite evidence of small-bowel obstruction. Previously seen dilated bowel in the left upper quadrant likely represented focal colon. Please note that all CT scans at this facility use dose modulation, iterative reconstruction, and/or weight-based dosing when appropriate to reduce radiation dose to as low as reasonably achievable. Dictated by Al Anderson MD @ 05/16/2024 1:05:08 PM Chest x-ray: Attestation: I have reviewed the pertinent imaging results. Radiologist's impression: No acute cardiothoracic abnormality. Top-normal dilated loop of bowel in the left upper quadrant measuring up to 6.2 cm. Findings are indeterminate for ileus versus obstruction. Dictated by Maryjane Painter MD @ 05/16/2024 11:53:44 AM ECG Data Attestation: I personally reviewed and interpreted this ECG as follows: Interpretation: Normal sinus rhythm with rate 79 beats per minute, normal intervals, normal axis, no ST or T-wave abnormalities. There is some elevation seen solely and V2 but does not appear to meet morphology of Brugada syndrome Discharge Plan Discharge Clinical Impression: Constipation Qualifiers: Constipation type: unspecified constipation type Qualified Code(s): K59.00 - Constipation, unspecified Patient Disposition: Home w/ Parent or Adult Condition: Stable Instructions: Constipation (DC) Additional Instructions: Recommend close follow-up with his primary care provider for the episode of hypotension and the constipation. If he is unable to to complete the following bowel cleanout regimen and he may need to increase his stool softeners. ?2 - Bisacodyl tablets (Dulcolax? laxative NOT Dulcolax? stool softener) each tablet contains 5 mg of bisacodyl ?1 - 8.3 ounce bottle of Polyethylene Glycol (PEG) 3350 Powder (MiraLAX, Sm oothLAX, ClearLAX or generic equivalent) 64 oz. Gatorade? (No red colored flavors) Regular Gatorade?, Gatorade G2?, Powerade?, Powerade Zero?, Pedialyte or Propel?, Liquid IV, and other electrolyte beverages are acceptable. Red flavors are not allowed; all other colors (yellow, green, orange, purple, blue) are okay. It is also okay to buy two 2.12 oz packets of powdered Gatorade that can be mixed with water to a total volume of 64 oz of liquid. ? Simethicone 80 mg or 125 mg tablets, chewables, or softgels -Simethicone is available over the counter in a variety of forms and dosages. Capsules, chewable tablets, and liquid are all acceptable forms. - If you are buying 125 mg tablets, purchase enough simethicone to take 2 tablets. -If you are buying 80 mg tablets, purchase enough to take 3 tablets. ?1 - 10 oz. bottle Magnesium Citrate (No red colored flavors) It is also okay for you to use a 0.5 ounce package of powdered magnesium citrate (17 grams) mixed with 10 ounces of water. ?Tomorrow begin Clear Liquid Diet (clear liquids include things you can see through). Examples of a clear liquid diet include: water, clear broth or bouillon (gluten free options available), Gatorade, Pedialyte or Powerade, carbonated and non-carbonated soft drinks (Sprite, 7-Up, Gingerale), strained fruit juices without pulp (apple, white grape, white cranberry), Jell-O, popsicles, and up to one cup of black coffee or tea (no milk or cream) each day. The following are not allowed on a clear liquid diet: red liquids, alcoholic beverages, dairy products, protein shakes, cream broths, juice with pulp, products containing oil and chewing tobacco. For additional details on following a clear liquid diet, please see https://www.mngi.com/conditions/cpnsd-jkmnkg-owqj ?Take 2 Bisacodyl (Dulcolax) tablets ?4-6 hour later Drink Miralax ? Gatorade preparation Mix 1 bottle of Miralax with 64 oz. of Gatorade in a large pitcher. Drink 1 - 8 oz. glass of the Miralax/Gatorade solution. Continue drinking 1 - 8 oz. glass every 15 minutes thereafter until the mixture is gone With the last glass of Miralax ? Gatorade solution: take 240-250 mg of simethicone. -Simethicone is available over the counter in a variety of forms and dosages. Capsules, chewable tablets, and liquid are all acceptable forms. -Take enough of the medication to total between 240-250 mg. For example, if you have -125 mg chewable tablets, take 2 tablets to total 250 mg. -80 mg tablets, take 3 tablets to total 240 mg. ?The next day take 10 ounces of magnesium citrate Prescriptions: New bisacodyl [Gentle Laxative (bisacodyl)] 5 mg tablet,delayed release (DR/EC) 5 mg PO ONCE Qty: 2 0RF polyethylene glycol 3350 17 gram/dose powder See Rx Instructions .ROUTE .COMPLEX Qty: 238 0RF Rx Instructions: Follow-up discharge instructions for use magnesium citrate Solution 296 ml PO ONCE Qty: 296 0RF simethicone 125 mg capsule 250 mg PO ONCE Qty: 2 0RF No Action propranolol 10 mg tablet 10 mg PO BID omega 5-xlv-unr-fish oil [Fish Oil] 1,000 (120-180) mg capsule 1 cap PO QDAY ondansetron 4 mg tablet,disintegrating 4 mg PO Q6H Qty: 20 0RF Basaglar KwikPen U-100 Insulin clozapine 50 mg tablet 50 mg PO DAILY Patient Comments: 7am clozapine 150 mg tablet,disintegrating 150 mg PO DAILY Patient Comments: 3pm clozapine 200 mg tablet 250 mg PO DAILY Patient Comments: 8pm clonidine HCl 0.1 mg tablet 0.1 mg PO HS cetirizine 10 mg tablet clozapine 100 mg tablet 150 mg PO DAILY Patient Comments: takes at 1500 triamcinolone acetonide 0.5 % ointment TOPICAL valproic acid (as sodium salt) 250 mg/5 mL solution 375 mg PO Q12H Patient Comments: HS dose 7.5 ml 2050/5ml afternoon dose 1500 mg 30 ml Ear Drops (carbamide peroxide) 6.5 % drops OTIC (EAR) docusate sodium 100 mg capsule 100 mg PO DAILY lorazepam 1 mg tablet 1 mg PO PRN Glucagon Emergency Kit (human) 1 mg recon soln polyethylene glycol 3350 [Gavilax] 17 gram/dose powder 17 g PO DAILY ipratropium bromide 42 mcg (0.06 %) spray,non-aerosol INTRANASAL fluoxetine 20 mg capsule 20 mg DAILY metformin 500 mg tablet extended release 24 hr 1,500 mg PO .pm divalproex 125 mg capsule, delayed rel sprinkle 500 mg PO .am (DME) pen needle, diabetic [UltiCare Pen Needle] 31 gauge x 5/16 needle MISCELLANEOUS Patient Comments: FOR ADMINISTERING INSULIN AT HOME ezetimibe 10 mg tablet 10 mg PO DAILY Patient Comments: 1/2 tab (5 mg ) fenofibrate 160 mg tablet 160 mg PO DAILY clozapine 50 mg tablet 50 mg PO .am insulin glargine [Basaglar KwikPen U-100 Insulin] 100 unit/mL (3 mL) insulin pen 28 unit SUBCUT HS Patient Comments: INJECT 17 UNITS SUBCUTANEOUSLY AT BEDTIME multivitamin with folic acid [Daily-Nahomi (with folic acid)] 400 mcg tablet 1 tab PO DAILY (DME) lancets [TRUEplus Lancets] 28 gauge misc MISCELLANEOUS Patient Comments: TEST THREE TIMES A DAY Follow Up/Referrals: Israel Monteiro MD [Primary Care Provider] - Stand Alone [facility]: [facility] Info Instructions
[2024-05-16 12:00] VITALS: PULSE 80; RESP 15; O2SAT 99
--- NOTE | 2024-05-16 12:01 | CRLHL7_ITS ---
For Patients: As a result of the Century Cures Act, medical imaging exams and procedure reports are released immediately into your electronic medical record. You may view this report before your referring provider. If you have questions, please contact your health care provider. Indication: Abdominal pain possible small-bowel obstruction seen on chest x-ray Technique: Volumetric multidetector CT images of the abdomen and pelvis were obtained after the administration of intravenous contrast. 77 cc Isovue 370 low osmolar intravenous contrast Comparison: Two-view chest May 16, 2024 Findings: The lung bases are clear. The liver is normal in attenuation without intrahepatic biliary ductal dilatation. The portal vein is patent. Contracted appearance of the gallbladder. There is no significant common biliary ductal dilatation or abrupt cut off. The spleen is normal in enhancement and size. The stomach and duodenum are grossly unremarkable. The pancreas is normal in enhancement without significant atrophy. The adrenal glands are unremarkable. The kidneys demonstrate preserved corticomedullary differentiation without evidence of obstructive uropathy. Moderate to severe stool is seen throughout the colon with minimal colonic air-fluid levels. The small bowel is otherwise somewhat decompressed. There is a moderately redundant sigmoid colon appreciated. Demonstration of dependent metallic radiopaque objects within the cecum. The appendix is not visualized. There is no significant mesenteric, retroperitoneal, or pelvic sidewall lymph nodes. The aorta is nonaneurysmal. There is no significant atherosclerotic disease appreciated. The solid pelvic viscera are grossly unremarkable. There is no free fluid or free air. The anterior abdominal wall is intact without significant hernias. The lumbar vertebral body heights are grossly maintained with minimal endplate Schmorl`s defects. Impression: 1. Demonstration of radiopaque metallic objects within the cecum which may represent ingested foreign bodies. Correlate with history of clinical symptoms. 2. Markedly redundant sigmoid colon with severe stool seen throughout the colon commensurate with constipation changes. Nonspecific fluid is seen within the small bowel without definite evidence of small-bowel obstruction. Previously seen dilated bowel in the left upper quadrant likely represented focal colon. Please note that all CT scans at this facility use dose modulation, iterative reconstruction, and/or weight-based dosing when appropriate to reduce radiation dose to as low as reasonably achievable. Dictated by Al Anderson MD @ 05/16/2024 1:05:08 PM (Electronically Signed)
--- OUTSIDE RECORDS SUMMARY | 2024-05-16 12:10 | XMS_ITS | Clinical Summary ---
Author Organization [facility] Address [address] [place] [address] Care Team Providers Care Atmospheric Scientist Name Role Phone Conner Sweeney MD Unavailable [...] DIRECTED 3 Each 3 023 Active Insulin [place], Disposable, 31 gauge x 3/16Indications:Typ e 1 [...] Department Care Team Description 05/09/2024 Telephone [facility] [address] [place] [address] Israel Monteiro MD Medication Management (medication management ) 04/30/2024 Telephone [facility] [address] [place] [address] Israel Monteiro MD Form 04/30/2024 Telephone [facility] [address] [place] [address] Israel Monteiro MD Questions (Orders and Materials ) 04/30/2024 Telephone [facility] [address] [place] [address] Israel Monteiro MD Form (Standing order for diabetic supplies and chart notes) 04/23/2024 Telephone [facility] [address] [place] [address] Israel Monteiro MD 04/16/2024 Telephone [facility] [address] [place] [address] Israel Monteiro MD Medication Management 04/12/2024 Travel 04/11/[address] [address] Israel Monteiro MD Refill Request (Lorazepam) 04/09/2024 10:50 AM DECORATIVE CUTTING MACHINE TENDER Office Visit [address] [address] Israel Monteiro MD Diabetes 04/09/2024 Travel 03/22/[address] [address] Israel Monteiro MD Lab 03/14/[address] [address] Israel Monteiro MD Form (Medication) 02/23/[address] [address] Israel Monteiro MD Refill Request (Basaglar Kwikpen) 02/22/[address] [address] Israel Monteiro MD Form 02/20/[address] [address] Israel Monteiro MD Form from Last 3 Months Immunizations Immunization Administration Dates Next Due AMB Influenza, IIV3 (Age >=3 years)(Flu Clinic Only) 11/19/2012,12/20/2011,01/29/2010,2008,01/02/2008 AMB Influenza, IIV4 PF (=>6 mos Flulaval,Fluzone Fluarix)(Flu Clinic Only) 12/16/2019,2013 COVID-19 VACCINE SPIKEVAX (M ODERNA 50MCG/0.5ML) 12YO+ PFS 12/29/2022 COVID-19 vaccine (Moderna 100mcg/0.5mL) PF, MDV 05/01/2020,04/03/2020 COVID-19 vaccine (RabixoBio NTech 30mcg/0.3mL) 12YO+ DEEPA-SUCROSE PF, MDV 10/28/2021 [...] on file Legal Sex Male 5:19 AM DECORATIVE CUTTING MACHINE TENDER Gender Identity Not on file Sexual Orientation Not on file Occupation Industry Job Start Date Job End Date disabled Not on file Not on file Not on file Obstetrics History Last Filed Vital Signs Vital Sign Reading Time Taken Comments Blood Pressure 105/71 04/09/2024 11:08 AM DECORATIVE CUTTING MACHINE TENDER Pulse 85 04/09/2024 11:08 AM DECORATIVE CUTTING MACHINE TENDER Temperature 36.4 C (97.5 F) 12/23/2021 11:21 AM CDT Respiratory Rate 18 12/11/2021 11:1 2 AM CDT Oxygen Saturation 100% 04/09/2024 11: 08 AM DECORATIVE CUTTING MACHINE TENDER Inhaled Oxygen Concentration - - Weight 72.5 kg (159 lb 14.4 oz) 025 11:08 AM DECORATIVE CUTTING MACHINE TENDER Height 168.7 cm (5' 6.4) 04/09/2024 11 :08 AM DECORATIVE CUTTING MACHINE TENDER Body Mass Index 25.5 04/09/2024 11:08 AM DECORATIVE CUTTING MACHINE TENDER Plan of Treatment Health Maintenance Due Date [...] CREATININE RATIO, RANDOM Routine 04/09/2024 11:01 AM DECORATIVE CUTTING MACHINE TENDER Type 2 diabetes mellitus without complication, with long-term current use of insulin (HC) BASIC METABOLIC PANEL Routine 04/09/2024 10:50 AM DECORATIVE CUTTING MACHINE TENDER Type 2 diabetes mellitus without complication, with long-term current use of insulin (HC) LIPID PANEL W REFLEX MEASURED LDL Routine 04/09/2024 10:50 AM DECORATIVE CUTTING MACHINE TENDER Hyperlipidemia, unspecified hyperlipidemia type HEMOGLOBIN A1C MONITORING (POCT) Routine 04/09/2024 10:48 AM DECORATIVE CUTTING MACHINE TENDER Type 2 diabetes mellitus without complication, with long-term current use of insulin (HC) ANTI HCV Routine 10/28/2021 10:12 AM CDT Need for hepatitis C screening test from Last 3 Months or Most Recently Relevant to Health Maintenance Results * (ABNORMAL) URINE ALBUMIN TO CREATININE RATIO, RANDOM (04/09/2024 11:01 AM DECORATIVE CUTTING MACHINE TENDER) ALB RAND URINE 291.0 mg/L 04/09/2024 4:56 PM DECORATIVE CUTTING MACHINE TENDER [facility] CREATININE,URIN E 2.48 g/L 04/09/2024 4:56 PM DECORATIVE CUTTING MACHINE TENDER [facility] ALBUMIN TO CREATININE RATIO,RAND UR 117.3(H) <30.0 mg/g creat 04/09/2024 4:56 PM DECORATIVE CUTTING MACHINE TENDER [facility] Urine URINE SPECIMEN / Unknown Non-Blood / Unknown 04/09/2024 11:01 AM DECORATIVE CUTTING MACHINE TENDER 04/09/2024 11:01 AM DECORATIVE CUTTING MACHINE TENDER Narrative [facility] - 04/09/2024 4:56 PM DECORATIVE CUTTING MACHINE TENDER If Albumin to Creatinine Ratio is elevated, consider the following: Elevations seen with incipient nephropathy associated with diabetes mellitus or hypertension. Stress, exercise,hematuria, and urinary tract infection may also produce elevated results. If clinically indicated, confirm with 24 Hour Albumin to Creatinine Ratio. us Israel Monteiro MD URINE Final Re sult [facility] [address] [place] [address], * (ABNORMAL) LIPID PANEL W REFLEX MEASURED LDL (04/09/2024 10:50 AM DECORATIVE CUTTING MACHINE TENDER) CHOLESTEROL, TOTAL 137 <200 mg/dL [facility] LDL-C. Abram SARMIENTO et al. ANTONELLA. 2013;310(19): 2598-3194 (http://education.SearchMe.OPKO Health/faq/RFF897) CHOL/HDLC RATIO 3.6 <5.0 (calc) [facility] NON HDL CHOLESTEROL 99 <130 mg/dL (calc) [facility] Comment: For patients with diabetes plus 1 major ASCVD risk factor, treating to a non-HDL-C goal of <100 mg/dL (LDL-C of <70 mg/dL) is considered a therapeutic option. Blood BLOOD SPECIMEN / Unknown 04/09/2024 10:50 AM DECORATIVE CUTTING MACHINE TENDER 04/09/2024 10:50 AM DECORATIVE CUTTING MACHINE TENDER Israel Monteiro MD CHEMISTRY Final Re sult We [facility] [address] [place] [address], [facility] [address] [place] [address] * (ABNORMAL) BASIC METABOLIC PANEL (04/09/2024 10:50 AM DECORATIVE CUTTING MACHINE TENDER) GLUCOSE 131(H) 65 - 99 mg/dL [facility] Comment: Fasting reference interval For someone without known diabetes, a glucose value >125 mg/dL indicates that they may have diabetes and this should be confirmed with a follow-up test. UREA NITROGEN (BUN) 15 7 - 25 mg/dL [facility] CREATININE 0.81 0.60 - 1.26 [...] BLOOD SPECIMEN / Unknown 04/09/2024 10:50 AM DECORATIVE CUTTING MACHINE TENDER 04/09/2024 10:50 AM DECORATIVE CUTTING MACHINE TENDER Israel Monteiro MD CHEMISTRY Final Re sult Performing Organization Address [facility]/ZIP Co de Phone Number We [facility] [address] [place] [address], [place] [phone] [facility] [address] [place] [address] * HEMOGLOBIN A1C MONITORING (POCT) (04/09/2024 10:48 AM DECORATIVE CUTTING MACHINE TENDER) [facility] POC HEMOGLOBIN A1C 5.8 <6.0 % OF TOTAL HGB [facility] Comment: Any point of care results exhibiting inconsistency with the patient's clinical status should be repeated using a different testing method. Blood BLOOD SPECIMEN / Unknown 04/09/2024 10:48 AM DECORATIVE CUTTING MACHINE TENDER 04/09/2024 10:48 AM DECORATIVE CUTTING MACHINE TENDER us Israel Monteiro MD CHEMISTRY Final Re sult Performing Organization Address [facility] Co de Phone Number [facility] [address] [place] [address], [facility] [address] [place] [address] * ANTI HCV (10/28/2021 10:12 AM CDT) [facility] HEPATITIS C ANTIBODY Non-React jacoby Non-React jacoby 10/28/2021 9:03 PM CDT [facility] Comment:Antibodies to HCV no t detected; does not exclude the possibility of exposure to HCV. Blood BLOOD SPECIMEN / Unknown Venipuncture / Unknown 10/28/2021 10:12 AM CDT 10/28/2021 10:15 AM CDT us Israel Monteiro MD SEND OUTS Final Re sult Performing Organization Address [facility]/ZIP Co de Phone Number [facility] [address] [place] [address], [place] from Last 3 Months or Most Recently Relevant to Health Maintenance Insurance MEDICAID MEDICARE PB ONLY MEDICARE PART B HB ONLY MEDICARE PART A HB ONLY MEDICARE PART A HB ONLY MEDICARE PART B HB ONLY MEDICAID Advance Directives * Full Code (Latest Code Status on File) Date Activated Date Inactivated Comments 09/30/2013 1:41 PM 09/30/2013 4:09 PM Care Teams Atmospheric Scientist Relationship Specialty Start Date End Date Votel, Israel Curiel MD [address] [facility] [place] [address] PCP - General Family Practice 10/07/15 Conner Seweney MD [address] , [address] [place] [address] Psychology 08/15/11
[2024-05-16 12:11] LABS: PCR FLU A Negative PCR FLU A (Negative); PCR FLU B Negative PCR FLU B (Negative); PCR RSV Negative PCR RSV (Negative); SARS PCR* Negative SARS-CoV-2 (Negative)
[2024-05-16 12:19] VITALS: BP 112/76; PULSE 80; RESP 12; O2SAT 99
[2024-05-16 12:26] LABS: Basophils Percent Auto 0.1 % (0.0-3.0); Eosinophils Percent Auto 0.8 % (0.0-7.0); Hematocrit 36.5 % (37.0-53.0); Hemoglobin* 11.9 gm/dL (13.5-17.5); Immature Granulocytes Pct Auto 1.1 %; Lymphocytes Percent Auto 13.6 % (20-44); Mean Corpuscular HGB Conc 33 gm/dL (32-36); Mean Corpuscular Hemoglobin 25 pg (26-34); Mean Corpuscular Volume 78 fL (80-100); Monocytes Percent Auto 7.8 % (0.0-11.0); Neutrophils Percent Auto 76.6 % (42.0-72.0); Platelet Count* 268 K/uL (140-440); RDW Coefficient of Variation % 14.8 % (11.5-15.5); Red Blood Count 4.69 m/uL (4.30-5.90); White Blood Count* 13.28 K/uL (4.50-11.00)
[2024-05-16 12:28] LABS: Slide Review Reflex No
[2024-05-16 12:34] LABS: Chloride* 97 mmol/L (96-114); Potassium* 4.4 mmol/L (3.6-5.1); Sodium* 131 mmol/L (135-149)
[2024-05-16 12:37] LABS: Anion Gap 11 mEq/L (7-15); Blood Urea Nitrogen* 15 mg/dL (5-24); Carbon Dioxide* 23 mmol/L (20-32); Creatinine* 0.9 mg/dL (0.5-1.5); Est. Creatinine Clearance* 105.07; Estimated Glomerular Filt Rate 113 ml/min
[2024-05-16 12:38] LABS: Glucose* 108 mg/dL (60-115); Magnesium* 2.1 mg/dL (1.5-2.6)
[2024-05-16 12:50] LABS: Troponin I* < 0.01 ng/mL (0.01-0.04)
== END 2024-05-16 13:38 | disposition home or self-care (01) ==
PROVIDERS: Emergency Provider Student in an Organized Health Care Education/Training Program; PCP Family Medicine
DX: K59.00 Constipation, unspecified (principal); Z13.1 Encounter for screening for diabetes mellitus
CPT/HCPCS: 36415; 71046; 74177; 80048; 82565; 82947; 83735; 84484; 85025; 87631; 93005; 99284; 99285; Q9967

== ENCOUNTER 2024-05-26 19:24 | Emergency (ER) | payer MEDICARE, MEDICAID, SELFPAY ==
[2024-05-26] VITALS (9 sets, daily range): BP systolic 111–118; BP diastolic 72–78; PULSE 80–85; RESP 11–16; TEMP 36.3; O2SAT 95–98; BMI 24.4
--- NOTE | 2024-05-26 19:26 | ED_ITS ---
HPI - General Adult General Date Seen: 05/26/24 Chief complaint: Constipation Stated complaint: constipation Time Seen by Provider: 05/26/24 19:26 History of Present Illness HPI narrative: 38 yo M with past medical history of seizures, autism spectrum, cognitive i mpairment, diabetes is presenting to the ER today from his residential with concern for constipation. History is obtained from his residential caregiver because the patient is largely nonverbal today. It sounds like he normally is able to ambulate on his own, is continent of bowel and bladder, but has limited ability to provide history. He is less conversant than normal today which is part of the reason why his residential staff brought him in History from his residential staff is that they are concerned about he is more lethargic than normal and seems to be complaining of abdominal pain and poor appetite. They know that he swallowed some quarters about a year ago and as far as they know he has never passed them. They indicate that he had had a CT scan a few days ago here in the ER and then maybe an x-ray in clinic a few days after that that showed that the cords were still located in his cecum and were not moving. Per his paper records brought to the ER from his residential he is no rmally on Colace b.i.d., MiraLax b.i.d., and fiber. He also he received a 1 time large bolus of MiraLax and a bottle of Mag citrate on May 17 (looks like a colonoscopy prep regimen was ordered). Despite that he is only passing liquid he small volume bowel movements for the past several days. It does not sound like he ever passed any large volume stool. He had been otherwise pretty much normal for the past several days. This afternoon at around 2:00 p.m. he seemed to become more lethargic and was groaning and was indicating the had a stomach ache. He has not been willing to eat or drink tonight and did not take his evening meds. He has not had a fever. Per records he was here in the ER about 10 days ago on May 16. At that time he had decreased activity level and low blood pressure measurements and noted his residential. Workup in the ER lobe is larger reassuring. He had also apparently swallowed some quarters. He had a CT scan of his abdomen pelvis that did reveal metallic foreign bodies in the cecum CT abdomen/pelvis 05/16/2024. Impression: 1. Demonstration of radiopaque metallic objects within the cecum which may represent ingested foreign bodies. Correlate with history of clinical symptoms. 2. Markedly redundant sigmoid colon with severe stool seen throughout the colon commensurate with constipation changes. Nonspecific fluid is seen within the small bowel without definite evidence of small-bowel obstruction. Previously seen dilated bowel in the left upper quadrant likely represented focal colon. Related Data Home Medications ?Medication ?Instructions ?Recorded ?Confirmed carbamide peroxide 6.5 % ear drops drp otic (ear) 09/11/21 05/09/24 (Ear Drops (carbamide peroxide)) cetirizine 10 mg tablet mg 09/11/21 05/09/24 clonidine HCl 0.1 mg tablet 0.1 mg PO HS 09/11/21 05/09/24 clozapine 100 mg tablet 150 mg PO DAILY 09/11/21 05/09/24 clozapine 50 mg tablet 50 mg PO .am 09/11/21 05/09/24 divalproex 125 mg capsule,delayed 500 mg PO .am 09/11/21 05/16/24 release sprinkle docusate sodium 100 mg capsule 100 mg PO DAILY 09/11/21 05/16/24 ezetimibe 10 mg tablet 10 mg PO DAILY 09/11/21 05/16/24 fenofibrate 160 mg tablet 160 mg PO DAILY 09/11/21 05/16/24 fluoxetine 20 mg capsule 20 mg DAILY 09/11/21 05/09/24 glucagon 1 mg solution for mg 09/11/21 05/09/24 injection (Glucagon Emergency Kit) insulin glargine 100 unit/mL (3 28 unit subcut HS 09/11/21 05/16/24 mL) subcutaneous pen (Basaglar KwikPen U-100 Insulin) ipratropium bromide 42 mcg (0.06 intranasal 09/11/21 05/09/24 %) nasal spray lancets 28 gauge (TRUEplus Lancets) 09/11/21 05/09/24 lorazepam 1 mg tablet 1 mg PO PRN 09/11/21 05/09/24 metformin 500 mg tablet,extended 1,500 mg PO .pm 09/11/21 05/16/24 release 24 hr multivitamin with folic acid 400 1 tab PO DAILY 09/11/21 05/16/24 mcg tablet (Daily-Nahomi (with folic acid)) pen needle, diabetic 31 gauge x 09/11/21 05/09/24 5/16 (UltiCare Pen Needle) polyethylene glycol 3350 17 17 g PO DAILY 09/11/21 05/16/24 gram/dose oral powder (Gavilax) triamcinolone acetonide 0.5 % topical 09/11/21 05/09/24 topical ointment valproic acid (as sodium salt) 250 375 mg PO Q12H 09/11/21 05/16/24 mg/5 mL oral solution omega 0-jem-rff-fish oil 1,000 mg 1 cap PO QDAY 05/09/24 05/16/24 (120 mg-180 mg) capsule (Fish Oil) propranolol 10 mg tablet 10 mg PO BID 05/09/24 05/16/24 Basaglar KwikPen U-100 Insulin 05/16/24 clozapine 150 mg disintegrating 150 mg PO DAILY 05/16/24 05/16/24 tablet clozapine 200 mg tablet 250 mg PO DAILY 05/16/24 05/16/24 clozapine 50 mg tablet 50 mg PO DAILY 05/16/24 05/16/24 Previous Rx's ?Medication ?Instructions ?Recorded ondansetron 4 mg disintegrating 4 mg PO Q6H #20 tabs 07/01/23 tablet bisacodyl 5 mg tablet,delayed 5 mg PO ONCE 0 days #2 tabs 05/16/24 release (Gentle Laxative (bisacodyl)) magnesium citrate 296 ml PO ONCE #296 mL 05/16/24 polyethylene glycol 3350 17 See Rx Instructions .Route 05/16/24 gram/dose oral powder .COMPLEX #238 grams simethicone 125 mg capsule 250 mg (2 x 125 mg) PO ONCE #2 caps 05/16/24 Allergies Allergy/AdvReac Type Severity Reaction Status Date / Time No Known Drug Allergies Allergy Verified 05/09/24 10:36 [facility] Medical History OCD (obsessive compulsive disorder) ?F42.9 - Obsessive-compulsive disorder, unspecified (ICD-10) Autism ?F84.0 - Autistic disorder (ICD-10) Diabetes mellitus ?E11.9 - Type 2 diabetes mellitus without complications (ICD-10) Seizure disorder ?G40.909 - Epilepsy, unspecified, not intractable, without status epilepticus (ICD-10) Social History Smoking Status: Never smoker Do you use any of these nicotine containing products: None Second hand tobacco smoke exposure: No How often do you have a drink containing alcohol: never How often do you have six or more drinks on one occasion: Never AUDIT-C Alcohol total score: 0 Non-prescribed substance use: denies use service: No Exam Narrative: Exam Narrative: Constitutional: Appears well-developed and well-nourished. Alert. Lying on the bed. Firstly on his left side. Initially seems like he is very drowsy but as were talking he reads my name tag and says my name out loud. He is able to follow simple commands but is not answering questions. History is obtained from his residential staff HENT: Head: Atraumatic. Nose: Nose normal. Mouth/Throat: Oral mucosa is clear and moist. no trismus. Pharynx normal. Tonsils symmetric. No tonsillar enlargement, erythema, or exudate. Eyes: Conjunctivae normal. EOM normal. Pupils equal, round, and reactive to light. No scleral icterus. Neck: Normal range of motion. Neck supple. No tracheal deviation present. Cardiovascular: Normal rate, regular rhythm. No gallop. No friction rub. No murmur heard. Symmetric radial artery pulses Pulmonary/Chest: Effort normal. No stridor. No respiratory distress. No wheezes. No rales. No rhonchi . No tenderness. Abdominal: Soft. Bowel sounds are hyperactive. He is distended and quite tympanic. He endorses tenderness in the right lower quadrant Rectal: Performed with post tensioning ironworker helper. Normal rectal tone. I do not palpate any stool or mass in the rectal vault. Musculoskeletal: RUE: Normal range of motion. No tenderness. No deformity LUE: Normal range of motion. No tenderness. No deformity RLE: Normal range of motion. No edema. No tenderness. No deformity LLE: Normal range of motion. No edema. No tenderness. No deformity Neurological: Awake, answers a few simple questions and reads my name tag. He says my full name allowed a few times. Follow simple commands. No focal deficits. normal strength. CN II-VII intact. No sensory deficit. GCS eye subscore is 4. GCS verbal subscore is 5. GCS motor subscore is 6. Normal coordination Skin: Skin is warm and dry. No rash noted. No pallor. Normal capillary refill. Psychiatric: Limited by mental status. Const: Vital Signs, click to edit/add: Vital Signs - 24 hr 05/26/24 19:29 Temperature 97.3 F L Pulse Rate [Apical ] 80 Respiratory Rate 12 Blood Pressure [Ri ght Upper Arm] 113/76 Pulse Oximetry 95 Oxygen Delivery Me thod Room Air Course Vital Signs Vital signs: Initial Vital Signs Temperature 97.3 F L 05/26/24 19:29 Temperature Source Temporal Artery Scan 05/26/24 19:29 Pulse Rate 80 05/26/24 19:29 Pulse Rhythm Regular 05/26/24 19:29 Respiratory Rate 12 05/26/24 19:29 Blood Pressure 113/76 05/26/24 19:29 Blood Pressure Mean 88 05/26/24 19:29 Pulse Oximetry 95 05/26/24 19:29 Oxygen Delivery Method Room Air 05/26/24 19:29 Vital Signs Temperature 97.3 F L 05/26/24 19:29 Pulse Rate 80 05/26/24 19:29 Respiratory Rate 12 05/26/24 19:29 Blood Pressure 113/76 05/26/24 19:29 Pulse Oximetry 95 05/26/24 19:29 Oxygen Delivery Method Room Air 05/26/24 19:29 Temperature 97.3 F L 05/26/24 19:29 Pulse Rate 80 05/26/24 19:29 Respiratory Rate 12 05/26/24 19:29 Blood Pressure 113/76 05/26/24 19:29 Pulse Oximetry 95 05/26/24 19:29 Oxygen Delivery Method Room Air 05/26/24 19:29 Medications Administered Medications: Generic Name Dose Route Start Last Admin Trade Name Freq PRN Reason Stop Dose Admin Sodium Chloride 1,000 mls @ 1,000 mls/hr 05/26/24 20:15 05/26/24 20:34 0.9 % Sodium Chloride 1000 Ml IV 05/26/24 21:14 1,000 mls/hr .Q1H JAMIE Administration Ondansetron HCl 4 mg 05/26/24 19:49 05/26/24 20:18 Ondansetron 2 Mg/Ml Inj IVP 05/26/24 19:50 4 mg ONCE ONE Administration Medical Decision Making MDM Narrative Medical decision making narrative: Initial labs and workup ordered. Discussed with my partner, Dr. Qiu at shift change-8:45 p.m.. He will follow-up on the outstanding labs, CT imaging. Dr. Qiu will determine ultimate disposition. CT is pending with concern for potential obstruction induced by the corns or possibly sigmoid volvulus causing the inability for the patient to pass stool. Patient does have decreased interaction level compared to his baseline. It is thought that this is probably due to him experiencing pain in the setting of his autism. Blood sugar was 160 at home. White count today is 14 which is up by 1 point compared to when he was here 10 days ago. Metabolic profile does show mildly low sodium at 1:27 a.m., mildly elevated potassium at 5.7, low chloride 92, bicarb 19. AST 67, ALT 21. Lipase normal. Clinical impression at this time: 1. Altered mental status 2. Abdominal pain, possible constipation. Rule out obstruction Lab Data Labs: Lab Results 05/26/24 Range/Units 20:10 WBC 14.24 H (4.50-11.00) K/uL RBC 5.18 (4.30-5.90) m/uL Hgb 13.2 L (13.5-17.5) gm/dL Hct 39.1 (37.0-53.0) % MCV 76 L (80-100) fL MCH 26 (26-34) pg MCHC 34 (32-36) gm/dL RDW Coeff of Mikal 14.6 (11.5-15.5) % Plt Count 201 (140-440) K/uL Neut % (Auto) 79.3 H (42.0-72.0) % Lymph % (Auto) 8.1 L (20-44) % [place] % (Auto) 11.4 H (0.0-11.0) % Eos % (Auto) 0.5 (0.0-7.0) % Baso % (Auto) 0.1 (0.0-3.0) % Neut # (Auto) 11.30 H (1.7-7.0) K/uL Lymph # (Auto) 1.20 (0.90-2.90) K/uL [place] # (Auto) 1.60 H (0.00-0.90) K/UL Eos # (Auto) 0.10 (0.00-0.50) K/uL Baso # (Auto) 0.00 (0.00-0.30) K/uL Abs Immat Gran (auto) 0.10 (0.00-0.30) K/uL Imm/Tot Granulo (auto) 0.6 % Sodium 127 L (135-149) mmol/L Potassium 5.7 H (3.6-5.1) mmol/L Chloride 92 L (96-114) mmol/L Carbon Dioxide 19 L (20-32) mmol/L Anion Gap 16 H (7-15) mEq/L BUN 21 (5-24) mg/dL Creatinine 0.9 (0.5-1.5) mg/dL Estimated Creat Clear 105.07 Estimated GFR 113 ml/min Glucose 174 H (60-115) mg/dL Lactate 2.2 H (0.5-1.9) mmol/L Calcium 10.3 (8.4-10.6) mg/dL Total Bilirubin 1.2 (0.1-1.5) mg/dL AST 67 H (12-35) U/L ALT 21 (4-50) U/L Alkaline Phosphatase 40 (40-150) U/L Total Protein 8.7 H (6.0-8.3) g/dL Albumin 5.3 H (3.3-5.0) g/dL Lipase 110 (23-300) U/L Discharge Plan Discharge Prescriptions: No Action propranolol 10 mg tablet 10 mg PO BID omega 8-ruo-vnl-fish oil [Fish Oil] 1,000 (120-180) mg capsule 1 cap PO QDAY ondansetron 4 mg tablet,disintegrating 4 mg PO Q6H Qty: 20 0RF Basaglar KwikPen U-100 Insulin clozapine 50 mg tablet 50 mg PO DAILY Patient Comments: 7am clozapine 150 mg tablet,disintegrating 150 mg PO DAILY Patient Comments: 3pm clozapine 200 mg tablet 250 mg PO DAILY Patient Comments: 8pm bisacodyl [Gentle Laxative (bisacodyl)] 5 mg tablet,delayed release (DR/EC) 5 mg PO ONCE Qty: 2 0RF polyethylene glycol 3350 17 gram/dose powder See Rx Instructions .ROUTE .COMPLEX Qty: 238 0RF Rx Instructions: Follow-up discharge instructions for use magnesium citrate Solution 296 ml PO ONCE Qty: 296 0RF simethicone 125 mg capsule 250 mg PO ONCE Qty: 2 0RF clonidine HCl 0.1 mg tablet 0.1 mg PO HS cetirizine 10 mg tablet clozapine 100 mg tablet 150 mg PO DAILY Patient Comments: takes at 1500 triamcinolone acetonide 0.5 % ointment TOPICAL valproic acid (as sodium salt) 250 mg/5 mL solution 375 mg PO Q12H Patient Comments: HS dose 7.5 ml 2050/5ml afternoon dose 1500 mg 30 ml Ear Drops (carbamide peroxide) 6.5 % drops OTIC (EAR) docusate sodium 100 mg capsule 100 mg PO DAILY lorazepam 1 mg tablet 1 mg PO PRN Glucagon Emergency Kit (human) 1 mg recon soln polyethylene glycol 3350 [Gavilax] 17 gram/dose powder 17 g PO DAILY ipratropium bromide 42 mcg (0.06 %) spray,non-aerosol INTRANASAL fluoxetine 20 mg capsule 20 mg DAILY metformin 500 mg tablet extended release 24 hr 1,500 mg PO .pm divalproex 125 mg capsule, delayed rel sprinkle 500 mg PO .am (DME) pen needle, diabetic [UltiCare Pen Needle] 31 gauge x 5/16 needle MISCELLANEOUS Patient Comments: FOR ADMINISTERING INSULIN AT HOME ezetimibe 10 mg tablet 10 mg PO DAILY Patient Comments: 1/2 tab (5 mg ) fenofibrate 160 mg tablet 160 mg PO DAILY clozapine 50 mg tablet 50 mg PO .am insulin glargine [Basaglar KwikPen U-100 Insulin] 100 unit/mL (3 mL) insulin pen 28 unit SUBCUT HS Patient Comments: INJECT 17 UNITS SUBCUTANEOUSLY AT BEDTIME multivitamin with folic acid [Daily-Nahomi (with folic acid)] 400 mcg tablet 1 tab PO DAILY (DME) lancets [TRUEplus Lancets] 28 gauge misc MISCELLANEOUS Patient Comments: TEST THREE TIMES A DAY Follow Up/Referrals: Israel Monteiro MD [Primary Care Provider] -
--- OUTSIDE RECORDS SUMMARY | 2024-05-26 19:26 | XMS_ITS | Clinical Summary ---
Author Organization [facility] Address [address] [place] [address] Care Team Providers Care Teamcenter Solution Architect Name Role Phone Conner Sweeney MD Unavailable [...] Diaper,Brief, Adult,Disposable (Disposable Brief)Indications:Ac tive autistic disorder (HC) Size MediumFor home use.Pull ups for incontinence [...] 2 LARGE 2 MED 400 Each 3 Active metFORMIN (GLUCOPHAGE XR) 500 mg Extended-Release tabletIndications:Ty pe 2 diabetes mellitus without complication, with long-term current use of insulin (HC) Take 3 Tablets (1,500 mg) by mouth once daily with evening meal. 93 Tablet 3 022 Active Incontinence Pad, Liner, Disp (Pant Liners, Large) padsIndications:Acti ve autistic disorder (HC) Use inside underpants and change as needed for incontinence. 144 Each 3 2 023 Active valproic acid (DEPAKENE) 250 mg/5 [...] use 2 Large 2 Med 400 Each 023 Active alcohol swabsIndications:Typ e 2 diabetes mellitus without complication, with long-term current use of insulin (HC) USE 5-6 TIMES DAILY WITH GLUCOSE TESTS AND INSULIN ADMINISTRATION 500 Each 023 Active blood glucose control, normal (True Metrix Level 2) solnIndications:Type 2 diabetes mellitus without complication, with long-term current use of insulin (HC) USE DIRECTED 3 Each 023 Active Insulin [place], Disposable, 31 gauge x 3/16Indications:Typ e 1 diabetes mellitus without complication (HC) For administering insulin at home. 100 Each 024 Active pen needle, diabetic (UltiCare Pen Needle) 31 gauge x 5/16Indications:Typ e 2 diabetes mellitus without complication, with long-term current use of insulin (HC) For administering insulin at home. 300 Each 024 Active Lancing Device miscIndications:Type 2 diabetes [...] subcutaneous before bedtime. 30 mL 024 Active LORazepam 1 mg tabletIndications:An xiety Take one tablet by mouth 1 hour BEFORE DENTAL APPOINTMENT Dental Procedure Anxiety 1 Tablet 4 025 Active milk of magnesia ([place] Milk of Magnesia) 400 mg/5 mL suspensionIndication s:Chronic constipation Give 30 mL oral on 3rd day without a spontaneous bowel movement. 473 mL 11 025 Active bisacodyL (DULCOLAX) 5 mg delayed release tabletIndications:Ch ronic constipation Give on evening of 2nd day without bowel movement. Use instead of MOM. 30 Tablet 11 025 2024 Disconti nued(*Me d ineffect jacoby) LORazepam 1 mg tabletIndications:An xiety TAKE 1 [...] Encounters Date Type Department Care Team Description 05/22/2024 2:30 PM CDT Office Visit [facility] [address] [facility] [address] Votel, Israel Curiel MD ER Follow up (Hypotension, [place], 05/16/24) 05/22/2024 Travel 05/16/2024 Orders Only [facility] Scanner 1 scan: (1-Ord) [place], CT ABDOMEN PELVIS W CON, 05/16/2024 05/16/2024 Orders Only [facility] Scanner 1 scan: (1-Ord) [facility], XR CHEST 2V, 05/16/2024 05/09/2024 Telephone [facility] [address] [place] [address] Israel Monteiro MD Medication Management (medication management ) 04/30/[address] [address] Israel Monteiro MD Form 04/30/[address] [address] Israel Monteiro MD Questions (Orders and Materials ) 04/30/[address] [address] Israel Monteiro MD Form (Standing order for diabetic supplies and chart notes) 04/23/[address] [address] Israel Monteiro MD 04/16/[address] [address] Israel Monteiro MD Medication Management 04/12/2024 Travel 04/11/[address] [address] Israel Monteiro MD Refill Request (Lorazepam) 04/09/2024 10:50 AM NEWS PRODUCER Office Visit [address] [address] Israel Monteiro MD Diabetes 04/09/2024 Travel 03/22/[address] [address] Israel Monteiro MD Lab 03/14/[address] [address] Israel Monteiro MD Form (Medication) from Last 3 Months Immunizations Immunization Administration Dates Next Due AMB Influenza, IIV3 (Age >=3 years)(Flu Clinic Only) 11/19/2012,12/20/2011,01/29/2010,2008,01/02/2008 AMB Influenza, IIV4 PF (=>6 mos Flulaval,Fluzone Fluarix)(Flu Clinic Only) 12/16/2019,2013 COVID-19 VACCINE SPIKEVAX (M ODERNA 50MCG/0.5ML) 12YO+ PFS 12/29/2022 COVID-19 vaccine (Moderna 100mcg/0.5mL) PF, MDV 05/01/2020,04/03/2020 COVID-19 vaccine (Pfizer-Bio NTech 30mcg/0.3mL) 12YO+ DEEPA-SUCROSE PF, MDV 10/28/2021 [...] on file Legal Sex Male 5:19 AM NEWS PRODUCER Gender Identity Not on file Sexual Orientation Not on file Occupation Industry Job Start Date Job End Date disabled Not on file Not on file Not on file Obstetrics History Last Filed Vital Signs Vital Sign Reading Time Taken Comments Blood Pressure 122/85 05/22/2024 2:36 PM CDT Pulse 85 05/22/2024 2:36 PM CDT Temperature 36.4 C (97.5 F) 12/23/2021 11:21 AM CDT Respiratory Rate 18 12/11/2021 11:12 AM CDT Oxygen Saturation 97% 05/22/2024 2:36 PM CDT Inhaled Oxygen Concentration - - Weight 72.7 kg (160 lb 4.8 oz) 05/22/2024 2:36 P M CDT Height 170.2 cm (5' 7) 05/22/2024 2:36 PM CDT Body Mass Index 25.11 05/22/2024 2:36 PM CDT Plan of Treatment Upcoming Encounters Date Type Department Care Team (Late st Contact Info) Description 06/13/2024 3:15 PM CDT Orders Only [facility] [address] [place] [address] Lab, [place] Health Maintenance Due Date Last Done Comments HIV for age 15-65 2001 COVID-19 vaccine series ( season) 2023 12/29/2022, 10/28/2021, 05/01/2020, Additional history exists BMI (ht and wt on same day) for age 18+ 05/22/2025 05/22/2024, 04/09/2024, 11/07/2023, Additional history exists Lipids for age 35-44 [...] Procedure Name Priority Date/Time Associated Diagnosis Comments SCAN-CT INTERPRETATION 12:00 AM CDT SCAN-RADIOLOGY REPORT 05/16/2024 12:00 AM CDT URINE ALBUMIN TO CREATININE RATIO, RANDOM Routine 04/09/2024 11:01 AM NEWS PRODUCER Type 2 diabetes mellitus without complication, with long-term current use of insulin (HC) BASIC METABOLIC PANEL Routine 04/09/2024 10:50 AM NEWS PRODUCER Type 2 diabetes mellitus without complication, with long-term current use of insulin (HC) LIPID PANEL W REFLEX MEASURED LDL Routine 04/09/2024 10:50 AM NEWS PRODUCER Hyperlipidemia, unspecified hyperlipidemia type HEMOGLOBIN A1C MONITORING (POCT) Routine 04/09/2024 10:48 AM NEWS PRODUCER Type 2 diabetes mellitus without complication, with long-term current use of insulin (HC) ANTI HCV Routine 10/28/2021 10:12 AM CDT Need for hepatitis C screening test from Last 3 Months or Most Recently Relevant to Health Maintenance Results * SCAN-RADIOLOGY REPORT (05/16/2024 12:00 AM CDT) Anatomical Region Laterality Modality Other us Scanner OTHER Final Result * SCAN-CT INTERPRETATION (05/16/2024 12:00 AM CDT) Anatomical Region Laterality Modality Other us Scanner OTHER Final Result * (ABNORMAL) URINE ALBUMIN TO CREATININE RATIO, RANDOM (04/09/2024 11:01 AM NEWS PRODUCER) ALB RAND URINE 291.0 mg/L 04/09/2024 4:56 PM NEWS PRODUCER [facility] CREATININE,URIN E 2.48 g/L 04/09/2024 4:56 PM NEWS PRODUCER [facility] ALBUMIN TO CREATININE RATIO,RAND UR 117.3(H) <30.0 mg/g creat 04/09/2024 4:56 PM NEWS PRODUCER [facility] Urine URINE SPECIMEN / Unknown Non-Blood / Unknown 04/09/2024 11:01 AM NEWS PRODUCER 04/09/2024 11:01 AM NEWS PRODUCER Narrative [facility] - 04/09/2024 4:56 PM NEWS PRODUCER If Albumin to Creatinine Ratio is elevated, consider the following: Elevations seen with incipient nephropathy associated with diabetes mellitus or hypertension. Stress, exercise,hematuria, and urinary tract infection may also produce elevated results. If clinically indicated, confirm with 24 Hour Albumin to Creatinine Ratio. us Israel Monteiro MD URINE Final Re sult [facility] [address] [place] [address], [place] * (ABNORMAL) LIPID PANEL W REFLEX MEASURED LDL (04/09/2024 10:50 AM NEWS PRODUCER) CHOLESTEROL, TOTAL 137 <200 mg/dL [facility] [place] HDL CHOLESTEROL 38(L) > OR = 40 mg/dL [employer] Rodriguez TRIGLYCERIDES 186(H) <150 mg/dL [employer] [place] LDL-CHOLESTEROL 74 mg/dL (calc) [facility] Rodriguez Comment: Reference range: <100 Desirable range <100 mg/dL for primary prevention; <70 mg/dL for patients with CHD or diabetic patients with > or = 2 CHD risk factors. LDL-C is now calculated using the Andrea calculation, which is a validated novel method providing better accuracy than the Friedewald equation in the estimation of LDL-C. Abram SS et al. ANTONELLA. 2013;310(19): 5806-8062 (http://education.IRI/faq/NPZ885) CHOL/HDLC RATIO 3.6 <5.0 (calc) [employer] ana [place] NON HDL CHOLESTEROL 99 <130 mg/dL (calc) [facility] ana Rodriguez Comment: For patients with diabetes plus 1 major ASCVD risk factor, treating to a non-HDL-C goal of <100 mg/dL (LDL-C of <70 mg/dL) is considered a therapeutic option. Blood BLOOD SPECIMEN / Unknown 04/09/2024 10:50 AM NEWS PRODUCER 04/09/2024 10:50 AM NEWS PRODUCER Israel Monteiro MD CHEMISTRY Final Re sult [facility] [address] [place] [address], [facility] [address] [place] [address] * (ABNORMAL) BASIC METABOLIC PANEL (04/09/2024 10:50 AM NEWS PRODUCER) Pathologist [facility] GLUCOSE 131(H) 65 - 99 mg/dL [facility] ana Rodriguez Comment: Fasting reference interval For someone without known diabetes, a glucose value >125 mg/dL indicates that they may have diabetes and this should be confirmed with a follow-up test. UREA NITROGEN (BUN) 15 7 - 25 mg/dL [facility] CREATININE 0.81 0.60 - 1.26 [...] BLOOD SPECIMEN / Unknown 04/09/2024 10:50 AM NEWS PRODUCER 04/09/2024 10:50 AM NEWS PRODUCER Israel Monteiro MD CHEMISTRY Final Re sult [facility] [address] [place] [address], [facility] [address] [place] [phone] * HEMOGLOBIN A1C MONITORING (POCT) (04/09/2024 10:48 AM NEWS PRODUCER) POC HEMOGLOBIN A1C 5.8 <6.0 % OF TOTAL HGB [facility] Comment: Any point of care results exhibiting inconsistency with the patient's clinical status should be repeated using a different testing method. Blood BLOOD SPECIMEN / Unknown 04/09/2024 10:48 AM NEWS PRODUCER 04/09/2024 10:48 AM NEWS PRODUCER Israel Monteiro MD CHEMISTRY Final Re sult Performing Organization Address City/Va Hospital/ZIP Co de Phone Number [facility] [address] [place] [address], [facility] [address] [place] [address] * ANTI HCV (10/28/2021 10:12 AM CDT) HEPATITIS C ANTIBODY Non-React jacoby Non-React jacoby 10/28/2021 9:03 PM CDT [facility] Comment:Antibodies to HCV no t detected; does not exclude the possibility of exposure to HCV. Blood BLOOD SPECIMEN / Unknown Venipuncture / Unknown 10/28/2021 10:12 AM CDT 10/28/2021 10:15 AM CDT Israel Monteiro MD SEND OUTS Final Re sult Performing Organization Address City/Va Hospital/ZIP Co de Phone Number [facility] [address] [place] [address], from Last 3 Months or Most Recently Relevant to Health Maintenance Insurance MEDICAID MEDICARE [place] ONLY MEDICARE PART B HB ONLY Member Subscriber Plan / Payer (Ef fective 2006-Present) Name:Debra Redding Member ID:[id number] Relation to Subscriber:Self Name:Debra Redding Subscriber ID:[id number] Payer ID:Not on file Group ID:Not on file Type:Not on file Address: ATTN: CLAIMS [address] [place], [place] [address] [place] [address] MEDICARE PART A HB ONLY MEDICARE PART A HB ONLY Member Subscriber Plan / Payer (Ef fective 2006-Present) Name:Debra Redding Member ID:[id number] Relation to Subscriber:Self Name:Debra Redding Subscriber ID:[id number] Payer ID:Not on file Group ID:Not on file Type:Not on file Address: ATTN: CLAIMS [address] [place], [place] [address] [place] [address] MEDICARE PART B HB ONLY MEDICAID Advance Directives * Full Code (Latest Code Status on File) Date Activated Date Inactivated Comments 09/30/2013 1:41 PM 09/30/2013 4:09 PM Care Teams Teamcenter Solution Architect Relationship Specialty Start Date End Date Votel, Israel Curiel MD [address] [place] [address] PCP - General Family Practice 10/07/15 Conner Sweeney MD [address] , [address] [place] [address] Psychology 08/15/11
--- NOTE | 2024-05-26 19:49 | CRLHL7_ITS ---
For Patients: As a result of the Century Cures Act, medical imaging exams and procedure reports are released immediately into your electronic medical record. You may view this report before your referring provider. If you have questions, please contact your health care provider. INDICATION: Abdominal pain, vomiting, bloated, tympanic. TECHNIQUE: CT abdomen and pelvis acquired with 77 cc of Isovue 370 IV contrast. COMPARISON: CT abdomen and pelvis 05/16/2024. FINDINGS: Lower chest: Bilateral lower lobe atelectasis. Liver: Unremarkable. Normal in size and attenuation. No suspicious masses. Gallbladder and bile ducts: Unremarkable. No stones or inflammation. No biliary dilatation. Pancreas: Unremarkable. No mass or inflammation. Spleen: Unremarkable. Normal in size. No masses. Adrenal glands: Unremarkable. No nodules. Kidneys: Unremarkable. No suspicious masses, stones, or hydronephrosis. GI tract: Distended stomach with abrupt transition to decompressed distal duodenum. Numerous fluid-filled dilated loops of small bowel throughout the abdomen with air-fluid levels. There is abrupt transition to decompressed distal small bowel within the posterior central superior pelvis (2/115). Moderate colonic stool burden. No pneumatosis. No evidence for appendicitis. Vasculature: Abdominal aorta is normal in caliber. Mesenteric arteries are patent. Lymph nodes: No lymphadenopathy. Peritoneum/Abdominal Wall: Unchanged metallic object in the right lower quadrant. No free air or significant free fluid. Pelvis: Unremarkable. Bones: Unremarkable for age. IMPRESSION: 1. Small-bowel obstruction with transition point in the posterior central superior pelvis. 2. Markedly distended stomach with abrupt transition to decompressed distal duodenum. Query underlying adhesion. Please note that all CT scans at this facility use dose modulation, iterative reconstruction, and/or weight-based dosing when appropriate to reduce radiation dose to as low as reasonably achievable. Dictated by Mookie Angulo MD @ 05/26/2024 8:48:42 PM (Electronically Signed)
[2024-05-26] MEDS: ONDANSETRON 2 MG/ML inj 4 MG IVP (20:18)
[2024-05-26 20:19] LABS: Lactate* 2.2 mmol/L (0.5-1.9)
[2024-05-26 20:24] LABS: Basophils Percent Auto 0.1 % (0.0-3.0); Eosinophils Percent Auto 0.5 % (0.0-7.0); Hematocrit 39.1 % (37.0-53.0); Hemoglobin* 13.2 gm/dL (13.5-17.5); Immature Granulocytes Pct Auto 0.6 %; Lymphocytes Percent Auto 8.1 % (20-44); Mean Corpuscular HGB Conc 34 gm/dL (32-36); Mean Corpuscular Hemoglobin 26 pg (26-34); Mean Corpuscular Volume 76 fL (80-100); Monocytes Percent Auto 11.4 % (0.0-11.0); Neutrophils Percent Auto 79.3 % (42.0-72.0); Platelet Count* 201 K/uL (140-440); RDW Coefficient of Variation % 14.6 % (11.5-15.5); Red Blood Count 5.18 m/uL (4.30-5.90); Slide Review Reflex No; White Blood Count* 14.24 K/uL (4.50-11.00)
--- OUTSIDE RECORDS SUMMARY | 2024-05-26 20:28 | XMS_ITS | Clinical Summary ---
Author Organization [facility] Address [address] [place] [address] Care Team Providers Care Lead Radiologic Technologist Name Role Phone Conner Sweeney MD Unavailable [...] USE DIRECTED 3 Each 023 Active Insulin [place], Disposable, 31 gauge x 3/16Indications:Typ e 1 [...] Description 05/22/2024 2:30 PM CDT Office Visit [facility] [address] [facility] [address] Votel, Israel Curiel MD ER Follow up (Hypotension, [place], 05/16/24) 05/22/2024 Travel 05/16/2024 Orders Only [facility] Scanner 1 scan: (1-Ord) [place], CT ABDOMEN PELVIS W CON, 05/16/2024 05/16/2024 Orders Only [facility] Scanner 1 scan: (1-Ord) [facility], XR CHEST 2V, 05/16/2024 05/09/2024 Telephone [facility] [address] [place] [address] [address] Israel Monteiro MD Medication Management (medication management ) 04/30/[address] [address] Israel Monteiro MD Form 04/30/[address] [address] Israel Monteiro MD Questions (Orders and Materials ) 04/30/[address] [address] Israel Monteiro MD Form (Standing order for diabetic supplies and chart notes) 04/23/[address] [address] Israel Monteiro MD 04/16/[address] [address] Israel Monteiro MD Medication Management 04/12/2024 Travel 04/11/[address] [address] Israel Monteiro MD Refill Request (Lorazepam) 04/09/2024 10:50 AM HEALTHCARE MANAGEMENT Office Visit [address] [address] Israel Monteiro MD Diabetes 04/09/2024 Travel 03/22/[address] [address] Israel Monteiro MD Lab 03/14/[address] [address] Israel Monteiro MD Form (Medication) from Last [...] on file Legal Sex Male 5:19 AM HEALTHCARE MANAGEMENT Gender Identity Not on file Sexual Orientation [...] Description 06/13/2024 3:15 PM CDT Orders Only [facility] [address] [place] [address] Lab, [place] Health Maintenance Due Date Last [...] CREATININE RATIO, RANDOM Routine 04/09/2024 11:01 AM HEALTHCARE MANAGEMENT Type 2 diabetes mellitus without complication, with long-term current use of insulin (HC) BASIC METABOLIC PANEL Routine 04/09/2024 10:50 AM HEALTHCARE MANAGEMENT Type 2 diabetes mellitus without complication, with long-term current use of insulin (HC) LIPID PANEL W REFLEX MEASURED LDL Routine 04/09/2024 10:50 AM HEALTHCARE MANAGEMENT Hyperlipidemia, unspecified hyperlipidemia type HEMOGLOBIN A1C MONITORING (POCT) Routine 04/09/2024 10:48 AM HEALTHCARE MANAGEMENT Type 2 diabetes mellitus without complication, with [...] TO CREATININE RATIO, RANDOM (04/09/2024 11:01 AM HEALTHCARE MANAGEMENT) ALB RAND URINE 291.0 mg/L 04/09/2024 4:56 PM HEALTHCARE MANAGEMENT [facility] CREATININE,URIN E 2.48 g/L 04/09/2024 4:56 PM HEALTHCARE MANAGEMENT [facility] ALBUMIN TO CREATININE RATIO,RAND UR 117.3(H) <30.0 mg/g creat 04/09/2024 4:56 PM HEALTHCARE MANAGEMENT [facility] Urine URINE SPECIMEN / Unknown Non-Blood / Unknown 04/09/2024 11:01 AM HEALTHCARE MANAGEMENT 04/09/2024 11:01 AM HEALTHCARE MANAGEMENT Narrative [facility] - 04/09/2024 4:56 PM HEALTHCARE MANAGEMENT If Albumin to Creatinine Ratio is elevated, consider the following: Elevations seen with incipient nephropathy associated with diabetes mellitus or hypertension. Stress, exercise,hematuria, and urinary tract infection may also produce elevated results. If clinically indicated, confirm with 24 Hour Albumin to Creatinine Ratio. us Israel Monteiro MD URINE Final Re sult [facility] [address] [place] [address], [place] * (ABNORMAL) LIPID PANEL W REFLEX MEASURED LDL (04/09/2024 10:50 AM HEALTHCARE MANAGEMENT) CHOLESTEROL, TOTAL 137 <200 mg/dL [facility] [place] HDL CHOLESTEROL 38(L) > OR = 40 mg/dL [facility] Rodriguez TRIGLYCERIDES 186(H) <150 mg/dL [facility] [place] LDL-CHOLESTEROL 74 mg/dL (calc) [facility] [place] Comment: Reference range: <100 Desirable range <100 mg/dL for primary prevention; <70 mg/dL for patients with CHD or diabetic patients with > or = 2 CHD risk factors. LDL-C is now calculated using the Andrea calculation, which is a validated novel method providing better accuracy than the Friedewald equation in the estimation of LDL-C. Abram SS et al. ANTONELLA. 2013;310(19): 2176-9974 (http://education.Publish2/faq/NUI047) CHOL/HDLC RATIO 3.6 <5.0 (calc) [facility] [place] NON HDL CHOLESTEROL 99 <130 mg/dL (calc) [facility] ana Rodriguez Comment: For patients with diabetes plus 1 major ASCVD risk factor, treating to a non-HDL-C goal of <100 mg/dL (LDL-C of <70 mg/dL) is considered a therapeutic option. Blood BLOOD SPECIMEN / Unknown 04/09/2024 10:50 AM HEALTHCARE MANAGEMENT 04/09/2024 10:50 AM HEALTHCARE MANAGEMENT Israel Motneiro MD CHEMISTRY Final Re sult [facility] [address] [place] [address], [facility] [address] [place] [address] * (ABNORMAL) BASIC METABOLIC PANEL (04/09/2024 10:50 AM HEALTHCARE MANAGEMENT) Pathologist [facility] GLUCOSE 131(H) 65 - 99 mg/dL [facility] [place] Comment: Fasting reference interval For [...] BLOOD SPECIMEN / Unknown 04/09/2024 10:50 AM HEALTHCARE MANAGEMENT 04/09/2024 10:50 AM HEALTHCARE MANAGEMENT Israel Monteiro MD CHEMISTRY Final Re sult [facility] [address] [place] [address], [facility] [address] [place] [phone] * HEMOGLOBIN A1C MONITORING (POCT) (04/09/2024 10:48 AM HEALTHCARE MANAGEMENT) POC HEMOGLOBIN A1C 5.8 <6.0 % OF TOTAL HGB [facility] Comment: Any point of care results exhibiting inconsistency with the patient's clinical status should be repeated using a different testing method. Blood BLOOD SPECIMEN / Unknown 04/09/2024 10:48 AM HEALTHCARE MANAGEMENT 04/09/2024 10:48 AM HEALTHCARE MANAGEMENT Israel Monteiro MD CHEMISTRY Final Re sult Performing Organization Address City/[facility]/ZIP Co de Phone Number [facility] [address] [place] [address], [facility] [address] [place] [address] * ANTI HCV (10/28/2021 10:12 AM CDT) HEPATITIS C ANTIBODY Non-React jacoby Non-React jacoby 10/28/2021 9:03 PM CDT [facility] Comment:Antibodies to HCV no t detected; does not exclude the possibility of exposure to HCV. Blood BLOOD SPECIMEN / Unknown Venipuncture / Unknown 10/28/2021 10:12 AM CDT 10/28/2021 10:15 AM CDT Israel Monteiro MD SEND OUTS Final Re sult Performing Organization Address City/[facility]/ZIP Co de Phone Number [facility] [address] [place] [address], from Last 3 Months or Most Recently Relevant to Health Maintenance Insurance MEDICAID MEDICARE [place] ONLY MEDICARE PART B HB ONLY Member Subscriber Plan / Payer (Ef fective 2006-Present) Name:Debra Redding Member ID:[id number] Relation to Subscriber:Self Name:Debra Redding Subscriber ID:[id number] Payer ID:Not on file Group ID:Not on file Type:Not on file Address: ATTN: CLAIMS [address] [place], [place] [address] [place] [address] MEDICARE PART A HB ONLY MEDICARE PART A HB ONLY Member Subscriber Plan / Payer (Ef fective 2006-Present) Name:Debra Redding Member ID:[id number] Relation to Subscriber:Self Name:Debra Redding Subscriber ID:[id number] Payer ID:Not on file Group ID:Not on file Type:Not on file Address: ATTN: CLAIMS [address] [place], [place] [address] [place] [address] MEDICARE PART B HB ONLY MEDICAID Advance Directives * Full Code (Latest Code Status on File) Date Activated Date Inactivated Comments 09/30/2013 1:41 PM 09/30/2013 4:09 PM Care Teams Lead Radiologic Technologist Relationship Specialty Start Date End Date Votel, Israel Curiel MD [address] [place] [address] PCP - General Family Practice 10/07/15 Conner Sweeney MD [address] , [address] [place] [address] Psychology 08/15/11
[2024-05-26] MEDS: 0.9 % SODIUM CHLORIDE 1000 ml 1,000 ML IV ×2 (20:34→22:16)
[2024-05-26 20:37] LABS: Chloride* 92 mmol/L (96-114)
[2024-05-26 20:38] LABS: Albumin* 5.3 g/dL (3.3-5.0); Potassium* 5.7 mmol/L (3.6-5.1); Sodium* 127 mmol/L (135-149)
[2024-05-26 20:40] LABS: Anion Gap 16 mEq/L (7-15); Blood Urea Nitrogen* 21 mg/dL (5-24); Carbon Dioxide* 19 mmol/L (20-32); Creatinine* 0.9 mg/dL (0.5-1.5); Est. Creatinine Clearance* 105.07; Estimated Glomerular Filt Rate 113 ml/min
[2024-05-26 20:41] LABS: Alanine Aminotransferase* 21 U/L (4-50); Alkaline Phosphatase* 40 U/L (40-150); Aspartate Amino Transferase* 67 U/L (12-35); Bilirubin Total* 1.2 mg/dL (0.1-1.5); Calcium* 10.3 mg/dL (8.4-10.6); Glucose* 174 mg/dL (60-115); Lipase* 110 U/L (23-300); Total Protein* 8.7 g/dL (6.0-8.3)
--- NOTE | 2024-05-26 22:00 | CRLHL7_ITS ---
For Patients: As a result of the Century Cures Act, medical imaging exams and procedure reports are released immediately into your electronic medical record. You may view this report before your referring provider. If you have questions, please contact your health care provider. Indication: NG confirmation Technique: Single view of the chest Comparison: Chest radiograph performed 05/16/2024 Findings/Impression: Enteric tube terminates in the body of the stomach, side hole distal to the GE junction. Dilated loops of small bowel noted. Left basilar atelectasis. Dictated by uGilherme Sunshine MD @ 05/26/2024 10:13:49 PM (Electronically Signed)
[2024-05-26] MEDS: OLANZapine 5 MG/ML inj 10 MG IVP (23:04)
[2024-05-27 00:05] VITALS: BP 124/79; PULSE 90; RESP 16; O2SAT 98
== END 2024-05-27 01:47 | disposition short-term general hospital (02) ==
PROVIDERS: Emergency Provider Emergency Medicine; PCP Family Medicine
DX: K56.609 Unspecified intestinal obstruction, unspecified as to partial versus complete obstruction (principal); E87.5 Hyperkalemia
CPT/HCPCS: 36415; 71045; 74177; 80053; 83605; 83690; 85025; 96361; 96374; 96375; 99283; 99285; J2405; J7030; Q9967

== ENCOUNTER 2024-05-27 01:42 | Outpatient (CLI) | payer MEDICARE, MEDICAID, SELFPAY | END 2024-05-27 01:43 | disposition home or self-care (01) | PROVIDERS: PCP Family Medicine; Visit Provider Student in an Organized Health Care Education/Training Program | DX: K56.609 Unspecified intestinal obstruction, unspecified as to partial versus complete obstruction (principal) | CPT/HCPCS: A0425; A0429 ==